=== PATIENT | male | born 1995 | race Caucasian/White ===

== ENCOUNTER 2024-04-15 16:43 | Outpatient (OUT) | payer BC, SELFPAY ==
--- NOTE | 2024-04-15 16:55 | XR_ITS ---
The [address] [address] Patient Name: GREG MARTINEZ MRN: [id number] date: 1995 Sex: M Assigned Patient Location: [facility] Current Patient Location: Accession/Order Number: [id number] Exam Date: 04/15/2024 17:00 Report Date: 04/16/2024 07:29 At the request of: DELIA DOLL Procedure: XR chest 2V PROCEDURE: XR chest 2V DATE: 04/15/2024 4:00 PM CDT COMPARISONS: None. CLINICAL INDICATION: 28 years Male Anterior chest wall pain R07.89 FINDINGS: The cardiomediastinal silhouette and pulmonary vasculature are within normal limits. The lungs are clear. There is no evidence of pleural effusion or pneumothorax. XR/XR chest 2V IMPRESSION: Chest radiograph is within normal limits. Electronically authenticated by: HAYDEN SORENSON Date: 04/16/2024 07:29
--- NOTE | 2024-04-15 16:56 | XR_ITS ---
The [address] [address] Patient Name: GREG MARTINEZ MRN: [id number] date: 1995 Sex: M Assigned Patient Location: RAD Current Patient Location: Accession/Order Number: [id number] Exam Date: 04/15/2024 17:00 Report Date: 04/16/2024 07:30 At the request of: DELIA DOLL Procedure: XR elbow LT min 3V PROCEDURE: XR elbow LT min 3V DATE: 04/15/2024 4:00 PM CDT COMPARISONS: None CLINICAL INDICATION: Left elbow pain M25.522 FINDINGS: There is no evidence of fractures or other osseous abnormalities. No evidence of left elbow joint effusion XR/XR elbow LT min 3V IMPRESSION: Left elbow radiographs show no evidence of abnormalities. Electronically authenticated by: HAYDEN SORENSON Date: 04/16/2024 07:30
== END 2024-04-15 16:44 | disposition home or self-care (01) ==
PROVIDERS: PCP Internal Medicine; Visit Provider Internal Medicine
DX: R07.89 Other chest pain (principal); M25.522 Pain in left elbow
CPT/HCPCS: 71046; 73080

== ENCOUNTER 2024-04-18 10:10 | Outpatient (OUT) | payer BC, SELFPAY ==
--- OUTSIDE RECORDS SUMMARY | 2024-04-18 10:13 | XMS_ITS ---
Patient Summarization (C-CDA 2.1 CCD) Created on: April 18, 2024 Cj Robrets : 1995 Sex: Male Author Organization Sample organization Care Team Providers Care Manager Web Name Role Phone SHARMILA, DR LIN Admitting Milka DOLL, DR LIN Attending Unavailable SHARMILA, DR LIN Primary Care Unavailable SHARMILA, DR LIN Consulting Unavailable Encounters Encounter Date Encounter Type Care Provider Facility Start: 04-15-2024 End: 04-15-2024 ambulatory [facility] Work Phone: Start: 04-15-2024 End: 04-15-2024 Encounter for general adult medical examination without abnormal findings [facility] Start: 04-15-2024 End: 04-15-2024 Patient encounter procedure [facility] Work Phone: Start: 04-21-2022 Encounter for genera l adult medical examination without abnormal findings DR KRAIG DOLL [facility] Start: 04-18-2022 End: 04-19-[address] KRAIG DOLL Facility:[facility] Start: 04-18-2022 End: 04-19-2022 Encounter for general adult medical examination without abnormal findings DR KRAIG DOLL Facility:[facility] Payers Date Payer Category Payer Unknown [id number] 1961 Unknown [id number] Plan of Treatment Date Care Activity Detail Author Comprehensive metabo lic 1999 panel - Serum or Plasma [facility] enter XR Chest 2 Views [facility] XR Elbow - left GE 3 Views [facility] Problems Problem Classification Problem Date Documented Da te Episodic/Chronic Nonspecific chest pain (1 source) Anterior chest wall pain; Translations: [Other chest pain] 04-15-2024 Episodic Other non-traumatic joint disorders (1 source) Pain in elbow; Translations: [Pain in left elbow] 04-15-2024 Episodic Results Test Name Value Interpretation Reference Range Facil ity T3, TOTAL (TRIIODOTHYRONINE) on 04-19-2022 T3, TOTAL 94 ng/dL Normal 71-180 [facility] Comment on above: Performed By: #### T 3TOTAL #### [facility] [address] [place] [address] Dr. Rosetta Miguel CBC AUTO DIFFon 04-18-2022 BASO # 0.1 103/ul Normal 0.0-0.1 [facility] Comment on above: Performed By: #### C BC #### [facility] [address] [place] [address] Dr. Rosetta Miguel Basophils/100 WBC (Bld) 0.8 % Normal 0.2-2.0 [facility] Comment on above: Performed By: #### C BC #### [facility] [address] [place] [address] Dr. Rosetta Miguel EO # 0.5 103/ul Normal 0.0-0.7 [facility] Comment on above: Performed By: #### C BC #### [facility] [address] [place] [address] Dr. Rosetta Miguel Eosinophils/100 WBC (Bld) 6.5 % Normal 0.9-7.0 [facility] Comment on above: Performed By: #### C BC #### [facility] [address] [place] [address] Dr. Rosetta Miguel Erythrocyte distribution width (RBC) [Ratio] 12.2 % Normal 11.0-15.0 [facility] Comment on above: Performed By: #### C BC #### [facility] [address] [place] [address] Dr. Rosetta Miguel Hematocrit (Bld) [Volume fraction] 45.7 % Normal 42.0-54.0 [facility] Comment on above: Performed By: #### C BC #### [facility] [address] [place] [address] Dr. Rosetta Miguel Hemoglobin (Bld) [Mass/Vol] 15.6 g/dL Normal 14.0-18.0 [facility] Comment on above: Performed By: #### C BC #### [facility] [address] [place] [address] Dr. Rosetta Miguel IG # 0.01 10e3/ul Normal 0.00-0.03 [facility] Comment on above: Performed By: #### C BC #### [facility] [address] [place] [address] Dr. Rosetta Miguel IG % 0.1 % Normal 0.0-0.5 [facility] Comment on above: Performed By: #### C BC #### [facility] [address] [place] [address] Dr. Rosetta Miguel LYMPH # 3.6 103/ul Normal 1.2-3.8 [facility] Comment on above: Performed By: #### C BC #### [facility] [address] [place] [address] Dr. Rosetta Miguel Lymphocytes/100 WBC (Bld) 45.7 % Normal 20.5-60.0 [facility] Comment on above: Performed By: #### C BC #### [facility] [address] [place] [address] Dr. Rosetta Miguel MANUAL DIFF REQ NO Normal [facility] Comment on above: Performed By: #### C BC #### [facility] [address] [place] [address] Dr. Rosetta Miguel MCH (RBC) [Entitic mass] 33.1 pg Normal 25.9-34.0 [facility] Comment on above: Performed By: #### C BC #### [facility] [address] [place] [address] Dr. Rosetta Miguel MCHC (RBC) [Mass/Vol] 34.1 g/dL Normal 29.9-35.2 [facility] Comment on above: Performed By: #### C BC #### [facility] [address] [place] [address] Dr. Rosetta Miguel MCV (RBC) [Entitic vol] 96.8 fL Critically high 80.0-94.0 [facility] Comment on above: Performed By: #### C BC #### [facility] [address] [place] [address] Dr. Rosetta Miguel MONO # 0.4 103/ul Normal 0.3-0.8 [facility] Comment on above: Performed By: #### C BC #### [facility] [address] [place] [address] Dr. Rosetta Miguel Monocytes/100 WBC (Bld) 5.2 % Normal 1.7-12.0 [facility] Comment on above: Performed By: #### C BC #### [facility] [address] [place] [address] Dr. Rosetta Miguel NEUT # 3.3 103/ul Normal 1.4-6.5 [facility] Comment on above: Performed By: #### C BC #### [facility] [address] [place] [address] Dr. Rosetta Miguel Neutrophils/100 WBC (Bld) 41.7 % Critically low 43.0-75.0 [facility] Comment on above: Performed By: #### C BC #### [facility] [address] [place] [address] Dr. Rosetta Miguel Platelet mean volume (Bld) [Entitic vol] 9.0 fL Critically low 9.5-13.5 [facility] Comment on above: Performed By: #### C BC #### [facility] [address] [place] [address] Dr. Rosetta Miguel PLT 277 103/ul Normal 150-450 [facility] Comment on above: Performed By: #### C BC #### [facility] [address] [place] [address] Dr. Rosetta Miguel RBC 4.72 106/ul Normal 4.70-6.10 [facility] Comment on above: Performed By: #### C BC #### [facility] [address] [place] [address] Dr. Rosetta Miguel WBC 7.8 103/ul Normal 4.0-11.0 [facility] Comment on above: Performed By: #### C BC #### [facility] [address] [place] [address] Dr. Rosetta Miguel FREE T4on 04-18-2022 Free T4 [Mass/Vol] 0.95 ng/dL Normal 0.76-1.46 [facility] Comment on above: Performed By: #### F T4 #### [facility] [address] [address] [address] Rosetta Miguel LIPID PROFILEon 04-18-2022 CHOL-HDL RATIO NORM SEE BELOW Normal [facility] Comment on above: Result Comment: 3.3 - 4.4 LOW RISK 4.4 - 7.1 AVERAGE RISK 7.1 - 11.0 MODERATE RISK >11.0 HIGH RISK Performed By: #### T SH, LIPID, CMP #### [facility] [address] [address] [address] Rosetta Miguel Cholesterol [Mass/Vol] 199 mg/dL Normal <=200 [facility] Comment on above: Performed By: #### T SH, LIPID, CMP #### [facility] [address] [address] [address] Rosetta Miguel Cholesterol in HDL [Mass/Vol] 43 mg/dL Normal 40-60 [facility] Comment on above: Performed By: #### T SH, LIPID, CMP #### [facility] [address] [address] [address] Rosetta Miguel Cholesterol in LDL [Mass/Vol] 127.0 mg/dL Normal [facility] Comment on above: Performed By: #### T SH, LIPID, CMP #### [facility] [address] [address] [address] Rosetta Miguel Cholesterol.total/C holesterol in HDL [Mass ratio] 4.6 {ratio} Normal [facility] Comment on above: Performed By: #### T SH, LIPID, CMP #### [facility] [address] [address] [address] Rosetta Miguel HDL NORMAL > or = 60 mg/dl - LO W CARDIOVASCULAR RISK <40 mg/dl - HIGH CARDIOVASCULAR RISK Normal [facility] Comment on above: Performed By: #### T SH, LIPID, CMP #### [facility] [address] [address] [address] Rosetta Miguel LDL CALC NORMAL SEE BELOW Normal [facility] Comment on above: Result Comment: <100 mg/dl OPTIMAL 100 - 129 mg/dl NEAR OR ABOVE OPTIMAL 130 - 159 mg/dl BORDERLINE HIGH 160 - 189 mg/dl HIGH >190 mg/dl VERY HIGH Performed By: #### T SH, LIPID, CMP #### [facility] [address] [address] [address] Rosetta Miguel Triglyceride [Mass/Vol] 145 mg/dL Normal <=150 [facility] Comment on above: Performed By: #### T SH, LIPID, CMP #### [facility] [address] [address] [address] Rosetta Miguel VLDL CALC 29.0 mg/dL Normal [facility] Comment on above: Performed By: #### T VALENTIN, LIPID, CMP #### [facility] [address] [address] [address] Rosetta Miguel PROF 14(COMP METB)on 022 Albumin [Mass/Vol] 4.1 g/dL Normal 3.4-5.0 [facility] Comment on above: Performed By: #### T VALENTIN, LIPID, CMP #### [facility] [address] [address] [address] Rosetta Miguel Albumin/Globulin [Mass ratio] 1.3 {ratio} Normal [facility] Comment on above: Performed By: #### T VALENTIN, LIPID, CMP #### [facility] [address] [address] [address] Rosetta Miguel ALP [Catalytic activity/Vol] 50 U/L Normal 46-116 [facility] Comment on above: Performed By: #### T VALENTIN, LIPID, CMP #### [facility] [address] [address] [address] Rosetta Miguel ALT [Catalytic activity/Vol] 20 U/L Normal 16-63 [facility] Comment on above: Performed By: #### T SH, LIPID, CMP #### [facility] [address] [address] [address] Rosetta Miguel Anion gap [Moles/Vol] 9.8 mmol/L Normal [facility] Comment on above: Performed By: #### T SH, LIPID, CMP #### [facility] [address] [place] [address] Dr. Rosetta Miguel AST [Catalytic activity/Vol] 19 U/L Normal 15-37 [facility] Comment on above: Performed By: #### T SH, LIPID, CMP #### [facility] [address] [place] [address] Dr. Rosetta Miguel Bilirubin [Mass/Vol] 0.3 mg/dL Normal 0.2-1.0 [facility] Comment on above: Performed By: #### T SH, LIPID, CMP #### [facility] [address] [place] [address] Dr. Rosetta Miguel Calcium [Mass/Vol] 8.7 mg/dL Normal 8.5-10.1 [facility] Comment on above: Performed By: #### T SH, LIPID, CMP #### [facility] [address] [place] [address] Dr. Rosetta Miguel Chloride [Moles/Vol] 107 mmol/L Normal 98-107 [facility] Comment on above: Performed By: #### T SH, LIPID, CMP #### [facility] [address] [place] [address] Dr. Rosetta Miguel CO2 [Moles/Vol] 31.1 mmol/L Normal 21.0-32.0 [facility] Comment on above: Performed By: #### T SH, LIPID, CMP #### [facility] [address] [place] [address] Dr. Rosetta Miguel Creatinine [Mass/Vol] 1.11 mg/dL Normal 0.70-1.30 [facility] Comment on above: Performed By: #### T SH, LIPID, CMP #### [facility] [address] [place] [address] Dr. Rosetta Miguel EGFR-AF CITIZEN OF [place] >60 Normal >=60 [facility] Comment on above: Performed By: #### T SH, LIPID, CMP #### [facility] [address] [place] [address] Dr. Rosetta Miguel EGFR-NON AF CITIZEN OF [place] >60 Normal >=60 [facility] Comment on above: Performed By: #### T SH, LIPID, CMP #### [facility] [address] [address] [address] Rosetta Miguel Globulin (S) [Mass/Vol] 3.1 g/dL Normal [facility] Comment on above: Performed By: #### T SH, LIPID, CMP #### [facility] [address] [place] [address] Dr. Rosetta Miguel Glucose [Mass/Vol] 90 mg/dL Normal 74-106 [facility] Comment on above: Performed By: #### T SH, LIPID, CMP #### [facility] [address] [place] [address] Dr. Rosetta Miguel Potassium [Moles/Vol] 4.9 mmol/L Normal 3.5-5.1 [facility] Comment on above: Performed By: #### T VALENTIN, LIPID, CMP #### [facility] [address] [place] [address] Dr. Rosetta Miguel Protein [Mass/Vol] 7.2 g/dL Normal 6.4-8.2 [facility] Comment on above: Performed By: #### T VALENTIN, LIPID, CMP #### [facility] [address] [place] [address] Dr. Rosetta Miguel Sodium [Moles/Vol] 143 mmol/L Normal 136-145 [facility] Comment on above: Performed By: #### T VALENTIN, LIPID, CMP #### [facility] [address] [place] [address] Dr. Rosetta Miguel Urea nitrogen [Mass/Vol] 18.0 mg/dL Normal 7.0-18.0 [facility] Comment on above: Performed By: #### T SH, LIPID, CMP #### [facility] [address] [place] [address] Dr. Rosetta Miguel Urea nitrogen/Creatinine [Mass ratio] 16.2 mg/mg Normal [facility] Comment on above: Performed By: #### T SH, LIPID, CMP #### [facility] [address] [place] [address] Dr. Rosetta Miguel TSHon 04-18-2022 TSH 1.988 uIU/mL Normal 0.358-3.740 [facility] Comment on above: Performed By: #### T SH, LIPID, CMP #### [facility] [address] [place], [place] [address] Dr. Rosetta Miguel TSH RANGE SEE BELOW Normal [facility] Comment on above: Result Comment: <0.3 4 UIU/ml HYPERTHYROID 0.34-5.60 UIU/ml EUTHYROID >5.60 UIU/ml HYPOTHYROID Performed By: #### T SH, LIPID, CMP #### [facility] [address] [place], [place] [address] Dr. Rosetta Miguel Social History Date Type Detail Facility Start: 04-15-2024 Tobacco smoking stat us KYIS Never smoked tobacco (finding) [facility] Start: 1995 Sex Assigned At Male F [facility] Vital Signs Date Time Vital Sign Value Performing Clinician Faci lity 04-15-2024 14:57-0400 Body height 187.96 cm [facility] 04-15-2024 14:57-0400 Body mass index (BMI) [Ratio] 19.8 kg/m2 [facility] 04-15-2024 14:57-0400 Body weight 69.96 kg [facility] 04-15-2024 14:57-0400 Diastolic blood pressure 83 mm[Hg] [facility] 04-15-2024 14:57-0400 Heart rate 82 /min [facility] 04-15-2024 14:57-0400 Respiratory rate 12 /min [facility] 04-15-2024 14:57-0400 Systolic blood pressure 138 mm[Hg] [facility] Evaluation note Note Date & Type Note Facility Evaluation note Diagnosis Onset Date Wellness examination noneact nathan [facility] Work Phone: Summary Purpose Family History No Family History Records Found Advance Directives Advance Directive Response Recorded Date/ Time Advance Directives No April 15 2:49pm Chief Complaint and Reason for Visit Chief Complaint wellness Reason for Visit Wellness examination Additional Source Comments (unrecognized sect ion and content) No Status Records Found INFORMATION SOURCE (unrecogn ized section and content) DATE CREATED AUTHOR 04/21/2022 [facility] Teams (unrecognized sec tion and content) Team Status: Active Member Role Status Dates Kraig Doll DO Primary Care Provider Active Team Status: Inactive Member Role Status Dates Kraig Doll DO Primary Care Provide r, Attending Provider Active Start: April 15, 2024 End: April 15, 2024 Goals (unrecognized section and content) Goals may be documented in a n alternate section FOR RECORDS PERTAINING TO PATIENTS WHO ARE OR HAVE BEEN ENROLLED IN A CHEMICAL DEPENDENCY/SUBSTANCEABUSE PROGRAM, SOME INFORMATION MAY BE OMITTED. This clinical summary was aggregated from multiple sources. Caution should be exercised in using it in the provision of clinical care. This summary normalizes information from multiple sources, and as a consequence, information in this document may materially change the coding, format and clinical context of patient data. In addition, data may be omitted in some cases. CLINICAL DECISIONS SHOULD BE BASED ON THE PRIMARY CLINICAL RECORDS. [facility]. provides no warranty or guarantee of the accuracy or completeness of information in this document.
[2024-04-18 10:22] LABS: Basophils Absolute Auto 0.1 10^3/uL (0.0-0.1); Basophils Percent Auto 1.2 % (0.2-2.0); Eosinophils Absolute Auto 0.3 10^3/uL (0.0-0.7); Eosinophils Percent Auto 4.8 % (0.9-7.0); Hematocrit 43.3 % (42.0-54.0); Hemoglobin 14.5 g/dL (14.0-18.0); Immature Granulocytes Abs Auto 0.01 10^3/uL (0.00-0.03); Immature Granulocytes Pct Auto 0.2 % (0.0-0.5); Lymphocytes Absolute Auto 2.6 10^3/uL (1.2-3.8); Lymphocytes Percent Auto 43.3 % (20.5-60.0); Mean Corpuscular HGB Conc 33.5 g/dL (29.9-35.2); Mean Corpuscular Hemoglobin 32.6 pg (25.9-34.0); Mean Corpuscular Volume 97.3 fL (80.0-94.0); Mean Platelet Volume 8.6 fL (9.5-13.5); Monocytes Absolute Auto 0.5 10^3/uL (0.3-0.8); Monocytes Percent Auto 8.7 % (1.7-12.0); Neutrophils Absolute Auto 2.5 10^3/uL (1.4-6.5); Neutrophils Percent Auto 41.8 % (43.0-75.0); Platelet Count 261 10^3/uL (150-450); Red Blood Count 4.45 10^6/uL (4.70-6.10); Red Cell Distribution Width 12.2 % (11.0-15.0); White Blood Count 6.1 10^3/uL (4.0-11.0)
[2024-04-18 12:09] LABS: Alanine Aminotransferase 26 U/L (16-63); Albumin Globulin Ratio 1.2; Albumin Level 3.7 g/dL (3.4-5.0); Alkaline Phosphatase 44 U/L (46-116); Anion Gap 12.2; Aspartate Amino Transferase 17 U/L (15-37); BUN Creatinine Ratio 9.6; Bilirubin Total 0.5 mg/dL (0.2-1.0); Calcium 8.2 mg/dL (8.5-10.1); Carbon Dioxide 31.2 mmol/L (21.0-32.0); Chloride 105 mmol/L (98-107); Chol HDL Ratio 2.7; Cholesterol 214 mg/dL (<=200); Estimated GFR (African America >60 (>=60); Estimated GFR (Non-African Ame >60 (>=60); Globulin 3.2 g/dL; Glucose 92 mg/dL (74-106); HDL Cholesterol 80 mg/dL (40-60); Potassium 4.4 mmol/L (3.5-5.1); Sodium 144 mmol/L (136-145); Thyroid Stimulating Hormone 1.959 uIU/mL (0.358-3.740); Total Protein 6.9 g/dL (6.4-8.2); Triglycerides 48 mg/dL (<=150); VLDL CHOLESTEROL 9.6 mg/dL
== END 2024-04-18 10:11 | disposition home or self-care (01) ==
LOC: LAB 10:10
PROVIDERS: PCP Internal Medicine; Visit Provider Internal Medicine
DX: Z00.00 Encounter for general adult medical examination without abnormal findings (principal)
CPT/HCPCS: 36415; 80053; 80061; 84443; 85025

== ENCOUNTER 2024-07-16 16:13 | Outpatient (OUT) | payer BC, SELFPAY ==
--- OUTSIDE RECORDS SUMMARY | 2024-07-16 16:22 | XMS_ITS | CCD ---
Author Organization [facility] Inform ion Partnership [facility] Care Team Providers Care Director [employer] Name Role Phone DR KRAIG DOLL Admitting Unavailable SHARMILA, DR LIN Attending Unavailable SHARMILA, DR LIN Primary Care Unavailable SHARMILA, DR LIN Consulting Unavailable Problems Problem Classification Problem Date Documented Da te Episodic/Chronic Abdominal pain (2 sources) Abdominal pain; Translations: [Unspecified abdominal pain] 04-15-2024 Episodic Gastrointestinal hemorrhage (2 sources) Hematochezia; Translations: [Melena] 04-15-2024 Episodic Nonspecific chest pain (3 sources) Anterior chest wall pain; Translations: [Other chest pain] 04-15-2024 Episodic Other nervous system disorders (1 source) Paresthesia of left upper limb; Translations: [Paresthesia of skin] 04-15-2024 Episodic Other nervous system disorders (1 source) Paresthesia of skin; Translations: [Disturbance of skin sensation] 07-15-2024 Episodic Other non-traumatic joint disorders (2 sources) Pain in elbow; Translations: [Pain in left elbow] 04-15-2024 Episodic Other non-traumatic joint disorders (1 source) Pain in left elbow; Translations: [Pain in joint, upper arm] 07-15-2024 Episodic Results Test Name Value Interpretation Reference Range Facility Basophils Auto (Bld) [#/Vol] on 04-18-2024 Basophils (Bld) [#/Vol] 0.1 10 3/uL 0.0-0.1 [facility] Basophils/100 WBC Auto (Bld) on 04-18-2024 Basophils/100 WBC (Bld) 1.2 % 0.2-2.0 [facility] Cholesterol in LDL Calc [Mas s/Vol]on 04-18-2024 Cholesterol in LDL [Mass/Vol] 125.0 mg/dL [facility] Comment on above: <100 mg/dl [id number] 0-129 mg/dl NEAR OR ABOVE [id number] mg/dl BORDERLINE [id number] mg/dl HIGH>190 mg/dl VERY HIGH Cholesterol in VLDL Calc [Ma ss/Vol]on 04-18-2024 Cholesterol in VLDL [Mass/Vol] 9.6 mg/dL [facility] Eosinophils/100 WBC Auto (Bl d)on 04-18-2024 Eosinophils/100 WBC (Bld) 4.8 % 0.9-7.0 [facility] Erythrocyte distribution wid th Auto (RBC) [Ratio]on 04-18-2024 Erythrocyte distribution width (RBC) [Ratio] 12.2 % 11.0-15.0 [facility] Estimated glomerular filtrat ion rate (GFR) non- Americanon 04-18-2024 GFR/1.73 sq M.predicted among non-blacks MDRD (S/P/Bld) [Vol rate/Area] mL/min/{1.73_m2} >=60 [facility] Globulin Calc (S) [Mass/Vol] on 04-18-2024 Globulin (S) [Mass/Vol] 3.2 g/dL [facility] Hematocrit Auto (Bld) [Volum e fraction]on 04-18-2024 Hematocrit (Bld) [Volume fraction] 43.3 % 42.0-54.0 [facility] Hemoglobin [Mass/volume] in Bloodon 04-18-2024 Hemoglobin (Bld) [Mass/Vol] 14.5 g/dL 14.0-18.0 [facility] Laboratory - Chemistry and C hemistry - challengeon 04-18-2024 Albumin [Mass/Vol] 3.7 g/dL 3.4-5.0 [facility] ALP [Catalytic activity/Vol] 44 U/L Low 46-116 [facility] ALT [Catalytic activity/Vol] 26 U/L 16-63 [facility] AST [Catalytic activity/Vol] 17 U/L 15-37 [facility] Bilirubin [Mass/Vol] 0.5 mg/dL 0.2-1.0 [facility] Calcium [Mass/Vol] 8.2 mg/dL Low 8.5-10.1 [facility] Chloride [Moles/Vol] 105 mmol/L 98-107 [facility] Cholesterol [Mass/Vol] 214 mg/dL High <=200 [facility] Cholesterol in HDL [Mass/Vol] 80 mg/dL High 40-60 [facility] Comment on above: > or =60 mg/dl - LOW CARDIOVASCULAR RISK<40 mg/dl - HIGH CARDIOVASCULAR RISK CO2 [Moles/Vol] 31.2 mmol/L 21.0-32.0 [facility] Creatinine [Mass/Vol] 1.14 mg/dL 0.70-1.30 [facility] GFR/1.73 sq M.predicted MDRD (S/P/Bld) [Vol rate/Area] mL/min/{1.73_m2} >=60 [facility] Glucose [Mass/Vol] 92 mg/dL 74-106 [facility] Potassium [Moles/Vol] 4.4 mmol/L 3.5-5.1 [facility] Protein [Mass/Vol] 6.9 g/dL 6.4-8.2 [facility] Sodium [Moles/Vol] 144 mmol/L 136-145 [facility] Triglyceride [Mass/Vol] 48 mg/dL <=150 [facility] TSH Qn 1.959 m[IU]/L 0.358-3.740 [facility] Urea nitrogen [Mass/Vol] 11.0 mg/dL 7.0-18.0 [facility] Urea nitrogen/Creatinine [Mass ratio] 9.6 mg/mg [facility] Laboratory - Hematology and Cell countson 04-18-2024 Immature granulocytes/100 WBC (Bld) 0.2 % 0.0-0.5 [facility] Leukocytes [#/volume] correc morgan for nucleated erythrocytes in Blood by Automated counon 04-18-2024 WBC corrected for nucl RBC Auto (Bld) [#/Vol] 6.1 10 3/uL 4.0-11.0 [facility] Lymphocytes Auto (Bld) [#/Vo l]on 04-18-2024 Lymphocytes (Bld) [#/Vol] 2.6 10 3/uL 1.2-3.8 [facility] Lymphocytes/100 WBC Auto (Bl d)on 04-18-2024 Lymphocytes/100 WBC (Bld) 43.3 % 20.5-60.0 [facility] MCH Auto (RBC) [Entitic mass ]on 04-18-2024 MCH (RBC) [Entitic mass] 32.6 pg 25.9-34.0 [facility] MCHC Auto (RBC) [Mass/Vol]on 04-18-2024 MCHC (RBC) [Mass/Vol] 33.5 g/dL 29.9-35.2 [facility] MCV Auto (RBC) [Entitic vol] on 04-18-2024 MCV (RBC) [Entitic vol] 97.3 fL High 80.0-94.0 [facility] Monocytes Auto (Bld) [#/Vol] on 04-18-2024 Monocytes (Bld) [#/Vol] 0.5 10 3/uL 0.3-0.8 [facility] Monocytes/100 WBC Auto (Bld) on 04-18-2024 Monocytes/100 WBC (Bld) 8.7 % 1.7-12.0 [facility] Neutrophils Auto (Bld) [#/Vo l]on 04-18-2024 Neutrophils (Bld) [#/Vol] 2.5 10 3/uL 1.4-6.5 [facility] Neutrophils/100 WBC Auto (Bl d)on 04-18-2024 Neutrophils/100 WBC (Bld) 41.8 % Low 43.0-75.0 [facility] No Panel Informationon 04-18 Eosinophils # (Auto) 0.3 10 3/uL 0.0-0.7 [facility] Immature Granulocyte # (Auto) 0.01 10 3/uL 0.00-0.03 [facility] Platelet mean volume Auto (B ld) [Entitic vol]on 04-18-2024 Platelet mean volume (Bld) [Entitic vol] 8.6 fL Low 9.5-13.5 [facility] Platelets Auto (Bld) [#/Vol] on 04-18-2024 Platelets (Bld) [#/Vol] 261 10 3/uL 150-450 [facility] RBC Auto (Bld) [#/Vol]on RBC (Bld) [#/Vol] 4.45 10 6/uL Low 4.70-6.10 [facility] Serum or plasma albumin/glob ulin mass ratioon 04-18-2024 Albumin/Globulin [Mass ratio] 1.2 {ratio} [facility] Serum or plasma anion gap de terminationon 04-18-2024 Anion gap [Moles/Vol] 12.2 mmol/L [facility] Serum or plasma total choles terol/high density lipoprotein (HDL) cholesterol mass chip 04-18-2024 Cholesterol.total/Cho lesterol in HDL [Mass ratio] 2.7 {ratio} [facility] Comment on above: 3.3 - 4.4 LOW RISK4. 4 - 7.1 AVERAGE RISK7.1 - 11.0 MODERATE RISK>11.0 HIGH RISK T3, TOTAL (TRIIODOTHYRONINE) on 04-19-2022 T3, TOTAL 94 ng/dL Normal 71-180 [facility] Comment on above: Performed By: #### T 3TOTAL #### [facility] [address] [place] [address] Dr. Rosetta Miguel CBC AUTO DIFFon 04-18-2022 BASO # 0.1 103/ul Normal 0.0-0.1 [facility] Comment on above: Performed By: #### C BC #### [facility] [address] [place] [address] Dr. Rosetta Miguel Basophils/100 WBC (Bld) 0.8 % Normal 0.2-2.0 [facility] Comment on above: Performed By: #### C BC #### [facility] [address] [place] [address] Dr. Rosetta Miguel EO # 0.5 103/ul Normal 0.0-0.7 [facility] Comment on above: Performed By: #### C BC #### [facility] [address] [place] [address] Dr. Rosetta Miguel Eosinophils/100 WBC (Bld) 6.5 % Normal 0.9-7.0 [facility] Comment on above: Performed By: #### C BC #### [facility] [address] [place] [address] Dr. Rosetta Miguel Erythrocyte distribution width (RBC) [Ratio] 12.2 % Normal 11.0-15.0 [facility] Comment on above: Performed By: #### C BC #### [facility] [address] [place] [address] Dr. Rosetta Miguel Hematocrit (Bld) [Volume fraction] 45.7 % Normal 42.0-54.0 [facility] Comment on above: Performed By: #### C BC #### [facility] [address] [place] [address] Dr. Rosetta Miguel Hemoglobin (Bld) [Mass/Vol] 15.6 g/dL Normal 14.0-18.0 [facility] Comment on above: Performed By: #### C BC #### [facility] [address] [place] [address] Dr. Rosetta Miguel IG # 0.01 10e3/ul Normal 0.00-0.03 [facility] Comment on above: Performed By: #### C BC #### [facility] [address] [place] [address] Dr. Rosetta Miguel IG % 0.1 % Normal 0.0-0.5 [facility] Comment on above: Performed By: #### C BC #### [facility] [address] [place] [address] Dr. Rosetta Miguel LYMPH # 3.6 103/ul Normal 1.2-3.8 [facility] Comment on above: Performed By: #### C BC #### [facility] [address] [place] [address] Dr. Rosetta Miguel Lymphocytes/100 WBC (Bld) 45.7 % Normal 20.5-60.0 [facility] Comment on above: Performed By: #### C BC #### [facility] [address] [place] [address] Dr. Rosetta Miguel MANUAL DIFF REQ NO Normal [facility] Comment on above: Performed By: #### C BC #### [facility] [address] [place] [address] Dr. Rosetta Miguel MCH (RBC) [Entitic mass] 33.1 pg Normal 25.9-34.0 [facility] Comment on above: Performed By: #### C BC #### [facility] [address] [place] [address] Dr. Rosetta Miguel MCHC (RBC) [Mass/Vol] 34.1 g/dL Normal 29.9-35.2 [facility] Comment on above: Performed By: #### C BC #### [facility] [address] [place] [address] Dr. Rosetta Miguel MCV (RBC) [Entitic vol] 96.8 fL Critically high 80.0-94.0 [facility] Comment on above: Performed By: #### C BC #### [facility] [address] [place] [address] Dr. Rosetta Miguel MONO # 0.4 103/ul Normal 0.3-0.8 [facility] Comment on above: Performed By: #### C BC #### [facility] [address] [place] [address] Dr. Rosetta Miguel Monocytes/100 WBC (Bld) 5.2 % Normal 1.7-12.0 [facility] Comment on above: Performed By: #### C BC #### [facility] [address] [place] [address] Dr. Rosetta Miguel NEUT # 3.3 103/ul Normal 1.4-6.5 [facility] Comment on above: Performed By: #### C BC #### [facility] [address] [place] [address] Dr. Rosetta Miguel Neutrophils/100 WBC (Bld) 41.7 % Critically low 43.0-75.0 [facility] Comment on above: Performed By: #### C BC #### [facility] [address] [place] [address] Dr. Rosetta Miguel Platelet mean volume (Bld) [Entitic vol] 9.0 fL Critically low 9.5-13.5 [facility] Comment on above: Performed By: #### C BC #### [facility] [address] [place] [address] Dr. Rosetta Miguel PLT 277 103/ul Normal 150-450 [facility] Comment on above: Performed By: #### C BC #### [facility] [address] [place] [address] Dr. Rosetta Miguel RBC 4.72 106/ul Normal 4.70-6.10 [facility] Comment on above: Performed By: #### C BC #### [facility] [address] [place] [address] Dr. Rosetta Miguel WBC 7.8 103/ul Normal 4.0-11.0 [facility] Comment on above: Performed By: #### C BC #### [facility] [address] [place] [address] Dr. Rosetta Miguel FREE T4on 04-18-2022 Free T4 [Mass/Vol] 0.95 ng/dL Normal 0.76-1.46 [facility] Comment on above: Performed By: #### F T4 #### [facility] [address] [place] [address] Dr. Rosetta Miguel LIPID PROFILEon 04-18-2022 CHOL-HDL RATIO NORM SEE BELOW Normal [facility] Comment on above: Result Comment: 3.3 - 4.4 LOW RISK 4.4 - 7.1 AVERAGE RISK 7.1 - 11.0 MODERATE RISK >11.0 HIGH RISK Performed By: #### T SH, LIPID, CMP #### [facility] [address] [place] [address] Dr. Rosetta Miguel Cholesterol [Mass/Vol] 199 mg/dL Normal <=200 [facility] Comment on above: Performed By: #### T SH, LIPID, CMP #### [facility] [address] [place] [address] Dr. Rosetta Miguel Cholesterol in HDL [Mass/Vol] 43 mg/dL Normal 40-60 [facility] Comment on above: Performed By: #### T SH, LIPID, CMP #### [facility] [address] [place] [address] Dr. Rosetta Miguel Cholesterol in LDL [Mass/Vol] 127.0 mg/dL Normal [facility] Comment on above: Performed By: #### T SH, LIPID, CMP #### [facility] [address] [address] [address] Rosetta Miguel Cholesterol.total/Cho lesterol in HDL [Mass ratio] 4.6 {ratio} Normal [facility] Comment on above: Performed By: #### T SH, LIPID, CMP #### [facility] [address] [address] [address] Rosetta Miguel HDL NORMAL > or = 60 mg/dl - LOW CARDIOVASCULAR RISK <40 mg/dl - HIGH CARDIOVASCULAR RISK Normal [facility] Comment on above: Performed By: #### T VALENTIN, LIPID, CMP #### [facility] [address] [place] [address] Dr. Rosetta Miguel LDL CALC NORMAL SEE BELOW Normal [facility] Comment on above: Result Comment: <100 mg/dl OPTIMAL 100 - 129 mg/dl NEAR OR ABOVE OPTIMAL 130 - 159 mg/dl BORDERLINE HIGH 160 - 189 mg/dl HIGH >190 mg/dl VERY HIGH Performed By: #### T VALENTIN, LIPID, CMP #### [facility] [address] [address] [address] Rosetta Miguel Triglyceride [Mass/Vol] 145 mg/dL Normal <=150 [facility] Comment on above: Performed By: #### T SH, LIPID, CMP #### [facility] [address] [place] [address] Dr. Rosetta Miguel VLDL CALC 29.0 mg/dL Normal [facility] Comment on above: Performed By: #### T SH, LIPID, CMP #### [facility] [address] [place] [address] Dr. Rosetta Miguel PROF 14(COMP METB)on 022 Albumin [Mass/Vol] 4.1 g/dL Normal 3.4-5.0 [facility] Comment on above: Performed By: #### T SH, LIPID, CMP #### [facility] [address] [place] [address] Dr. Rosetta Miguel Albumin/Globulin [Mass ratio] 1.3 {ratio} Normal [facility] Comment on above: Performed By: #### T SH, LIPID, CMP #### [facility] [address] [address] [address] Rosetta Miguel ALP [Catalytic activity/Vol] 50 U/L Normal 46-116 [facility] Comment on above: Performed By: #### T SH, LIPID, CMP #### [facility] [address] [address] [address] Rosetta Miguel ALT [Catalytic activity/Vol] 20 U/L Normal 16-63 [facility] Comment on above: Performed By: #### T SH, LIPID, CMP #### [facility] [address] [address] [address] Rosetta Miguel Anion gap [Moles/Vol] 9.8 mmol/L Normal [facility] Comment on above: Performed By: #### T SH, LIPID, CMP #### [facility] [address] [place] [address] Dr. Rosetta Miguel AST [Catalytic activity/Vol] 19 U/L Normal 15-37 [facility] Comment on above: Performed By: #### T SH, LIPID, CMP #### [facility] [address] [address] [address] Rosetta Miguel Bilirubin [Mass/Vol] 0.3 mg/dL Normal 0.2-1.0 [facility] Comment on above: Performed By: #### T SH, LIPID, CMP #### [facility] [address] [place] [address] Dr. Rosetta Miguel Calcium [Mass/Vol] 8.7 mg/dL Normal 8.5-10.1 [facility] Comment on above: Performed By: #### T SH, LIPID, CMP #### [facility] [address] [address] [address] Rosetta iMguel Chloride [Moles/Vol] 107 mmol/L Normal 98-107 [facility] Comment on above: Performed By: #### T SH, LIPID, CMP #### [facility] [address] [address] [address] Rosetta Miguel CO2 [Moles/Vol] 31.1 mmol/L Normal 21.0-32.0 [facility] Comment on above: Performed By: #### T SH, LIPID, CMP #### [facility] [address] [address] [address] Rosetta Miguel Creatinine [Mass/Vol] 1.11 mg/dL Normal 0.70-1.30 [facility] Comment on above: Performed By: #### T SH, LIPID, CMP #### [facility] [address] [address] [address] Rosetta Miguel EGFR-AF BENINESE >60 Normal >=60 [facility] Comment on above: Performed By: #### T SH, LIPID, CMP #### [facility] [address] [address] [address] Rosetta Miguel EGFR-NON AF BENINESE >60 Normal >=60 [facility] Comment on above: Performed By: #### T SH, LIPID, CMP #### [facility] [address] [address] [address] Rosetta Miguel Globulin (S) [Mass/Vol] 3.1 g/dL Normal [facility] Comment on above: Performed By: #### T SH, LIPID, CMP #### [facility] [address] [address] [address] Rosetta Miguel Glucose [Mass/Vol] 90 mg/dL Normal 74-106 [facility] Comment on above: Performed By: #### T SH, LIPID, CMP #### [facility] [address] [address] [address] Rosetta Miguel Potassium [Moles/Vol] 4.9 mmol/L Normal 3.5-5.1 [facility] Comment on above: Performed By: #### T SH, LIPID, CMP #### [facility] [address] [address] [address] Rosetta Miguel Protein [Mass/Vol] 7.2 g/dL Normal 6.4-8.2 [facility] Comment on above: Performed By: #### T SH, LIPID, CMP #### [facility] [address] [address] [address] Rosetta Miguel Sodium [Moles/Vol] 143 mmol/L Normal 136-145 [facility] Comment on above: Performed By: #### T SH, LIPID, CMP #### [facility] [address] [address] [address] Rosetta Miguel Urea nitrogen [Mass/Vol] 18.0 mg/dL Normal 7.0-18.0 [facility] Comment on above: Performed By: #### T SH, LIPID, CMP #### [facility] [address] [place] [address] Dr. Rosetta Miguel Urea nitrogen/Creatinine [Mass ratio] 16.2 mg/mg Normal [facility] Comment on above: Performed By: #### T SH, LIPID, CMP #### [facility] [address] [place] [address] Dr. Rosetta Miguel TSHon 04-18-2022 TSH 1.988 uIU/mL Normal 0.358-3.740 [facility] Comment on above: Performed By: #### T SH, LIPID, CMP #### [facility] [address] [place] [address] Dr. Rosetta Miguel TSH RANGE SEE BELOW Normal [facility] Comment on above: Result Comment: <0.3 4 UIU/ml HYPERTHYROID 0.34-5.60 UIU/ml EUTHYROID >5.60 UIU/ml HYPOTHYROID Performed By: #### T SH, LIPID, CMP #### [facility] [address] [place] [address] Dr. Rosetta Miguel Vital Signs Date Time Vital Sign Value Performing Clinician Faci lity 07-15-2024 16:03040 Body height 187.96 cm [facility] 07-15-2024 16:030400 Body mass index (BMI) [Ratio] 20.2 kg/m2 [facility] 07-15-2024 16:040 Body weight 71.72 kg [facility] 07-15-2024 16:03-0400 Diastolic blood pressure 83 mm[Hg] [facility] 07-15-2024 16:03-0400 Heart rate 85 /min [facility] 07-15-2024 16:030400 Respiratory rate 12 /min [facility] 07-15-2024 16:03-0400 Systolic blood pressure 159 mm[Hg] [facility] 04-15-2024 14:57-0400 Body height 187.96 cm [facility] 04-15-2024 14:57-0400 Body mass index (BMI) [Ratio] 19.8 kg/m2 [facility] 04-15-2024 14:57-0400 Body weight 69.96 kg [facility] 04-15-2024 14:57-0400 Diastolic blood pressure 83 mm[Hg] [facility] 04-15-2024 14:57-0400 Heart rate 82 /min [facility] 04-15-2024 14:57-0400 Respiratory rate 12 /min [facility] 04-15-2024 14:57-0400 Systolic blood pressure 138 mm[Hg] [facility] Encounters Encounter Date Encounter Type Care Provider Facility Start: 07-15-2024 End: 07-15-2024 ambulatory [facility] Work Phone: Start: 07-15-2024 End: 07-15-2024 Patient encounter procedure [facility] Work Phone: Start: 04-18-2024 Non-patient / Non-visit [facility] Work Phone: Start: 04-15-2024 End: 04-15-2024 ambulatory [facility] Work Phone: Start: 04-15-2024 End: 04-15-2024 Encounter for general adult medical examination without abnormal findings [facility] Start: 04-15-2024 End: 04-15-2024 Patient encounter procedure [facility] Work Phone: Start: 04-21-2022 Encounter for genera l adult medical examination without abnormal findings DR KRAIG DOLL [facility] Start: 04-18-2022 End: 04-19-[address] KRAIG DOLL Facility: Start: 04-18-2022 End: 04-19-2022 Encounter for general adult medical examination without abnormal findings DR KRAIG DOLL Facility:[facility]1 Plan of Treatment Date Care Activity Detail Author Comprehensive metabo lic 1999 panel - Serum or Plasma [facility] enter IgA [Mass/volume] in Serum or Plasma [facility] Tissue transglutamin ase IgA Ab [Units/volume] in Serum [facility] enter XR Chest 2 Views [facility] XR Elbow - left GE 3 Views [facility] Payers Date Payer Category Payer Unknown [id number] 1961 Unknown [id number] Social History Date Type Detail Facility Start: 04-15-2024 Tobacco smoking stat us [facility] Never smoked tobacco (finding) [facility] Start: 1995 Sex Assigned At Male F [facility] Evaluation note Note Date & Type Note Facility Evaluation note Diagnosis Onset Date Wellness examination noneact nathan [facility] Work Phone: Evaluation note Note Date & Type Note Facility Evaluation note Diagnosis Onset Date Abdominal pain acute Anterior chest wall pain acu te Arm paresthesia, left acute Hematochezia acute Left elbow pain acute [facility] Work Phone: Summary Purpose Family History No Family History Records Found Advance Directives Advance Directive Response Recorded Date/ Time Advance Directives No April 15 2:49pm Chief Complaint and Reason for Visit Chief Complaint wellness Reason for Visit Wellness examination Chief Complaint go over results Reason for Visit Abdominal pain Anterior chest wall pain Arm paresthesia, left Hematochezia Left elbow pain Additional Source Comments (unrecognized sect ion and content) No Status Records Found INFORMATION SOURCE (unrecogn ized section and content) DATE CREATED AUTHOR 04/21/2022 [facility] Care Teams (unrecognized sec tion and content) Team Status: Active Member Role Status Dates Kraig Doll DO Primary Care Provider Active Team Status: Active Member Role Status Dates Kraig Doll DO Primary Care Provide r, Attending Provider Active Start: April 18, 2024 Team Status: Inactive Member Role Status Dates Kraig Doll DO Primary Care Provide r, Attending Provider Active Start: July 15, 2024 End: July 15, 2024 Team Status: Active Member Role Status Dates Kraig Doll , DO Primary Care Provider Active Team Status: Inactive Member Role Status Dates Kraig Doll , DO Primary Care Provide r, Attending Provider Active Start: April 15, 2024 End: April 15, 2024 Team Status: Active Member Role Status Dates Kraig Doll , DO Primary Care Provide r, Attending Provider Active Start: April 18, 2024 Team Status: Inactive Member Role Status Dates Kraig Doll , DO Primary Care Provide r, Attending Provider Active Start: July 15, 2024 End: July 15, 2024 Goals (unrecognized section and content) Goals may be documented in a n alternate sectionGoals may be documented in an alternate section FOR RECORDS PERTAINING TO PATIENTS [...] BE BASED ON THE PRIMARY CLINICAL RECORDS. [employer] provides no warranty or guarantee of the accuracy or completeness of information in this document.
[2024-07-18 09:09] LABS: Immunoglobulin A, Qn 185 mg/dL (90-386)
[2024-07-18 15:08] LABS: t-Transglutaminase (tTG) IgA <2 U/mL (0-3)
== END 2024-07-16 16:14 | disposition home or self-care (01) ==
PROVIDERS: PCP Internal Medicine; Visit Provider Internal Medicine
DX: R10.9 Unspecified abdominal pain (principal)
CPT/HCPCS: 36415; 82784; 86364

== ENCOUNTER 2025-01-14 15:39 | Outpatient (OUT) | payer BC, SELFPAY ==
--- OUTSIDE RECORDS SUMMARY | 2025-01-14 15:48 | XMS_ITS | CCD ---
Author Organization [facility] Care Team Providers Care Customer Support Analyst Name Role Phone DR KRAIG DOLL Admitting Unavailable SHARMILA, DR LNI Attending Unavailable DR KRAIG DOLL Primary Care Unavailable SHARMILA, DR LIN Consulting Unavailable Medications Current Medications Medication Drug Class(es) Dates Sig (Normalized) Sig (Original) amphetamine aspartate 1.25 mg / amphetamine sulfate 1.25 mg / dextroamphetamine saccharate 1.25 mg / dextroamphetamine sulfate 1.25 mg oral tablet (7 sources) Central Nervous System Stimulant Start: 07-22-2024 End: 12-31-2024 Dextroamphetamin e-Amphetamine (Adderall) 5 mg tablet Active 5 MG PO Twice daily 60 December 31, 2024 administer doses at least 4-6 hours apart omeprazole 40 mg delayed release oral capsule (1 source) Proton Pump Inhibitor Start: 01-06-2025 Omeprazole 40 mg capsule,delayed release(/EC) Active 40 MG PO Daily January 06, 2025 12:00am Take on an empty stomach, 30 minutes prior to bkfst Problems Problem Classification Problem Date Documented Da te Episodic/Chronic Abdominal pain (7 sources) Abdominal pain; Translations: [Unspecified abdominal pain] 04-15-2024 Episodic Alcohol-related disorders (2 sources) Alcohol intake above recommended sensible limits; Translations: [Alcohol abuse, uncomplicated] 01-03-2025 Chronic Disorders usually diagnosed in infancy, childhood, or adolescence (4 sources) Attention deficit hyperactivity disorder, predominantly inattentive type; Translations: [Other specified behavioral and emotional disorders with onset usually occurring in childhood and adolescence] 07-15-2024 Chronic Gastrointestinal hemorrhage (4 sources) Hematochezia; Translations: [Melena] 04-15-2024 Episodic Nausea and vomiting (2 sources) Nausea and vomiting; Translations: [Nausea with vomiting, unspecified] 01-06-2025 Episodic Nonspecific chest pain (9 sources) Anterior chest wall pain; Translations: [Other chest pain] 04-15-2024 Episodic Other and unspecified benign neoplasm (2 sources) Melanocytic nevus of skin ; Translations: [Melanocytic nevi, unspecified] 11-17-2024 Episodic Other and unspecified benign neoplasm (2 sources) Melanocytic nevi, unspecified; Translations: [Benign neoplasm of skin, site unspecified] 11-17-2024 Episodic Other nervous system disorders (3 sources) Paresthesia of left upper limb; Translations: [Paresthesia of skin] 04-15-2024 Episodic Other nervous system disorders (1 source) Paresthesia of skin; Translations: [Disturbance of skin sensation] 07-15-2024 Episodic Other non-traumatic joint disorders (4 sources) Pain in elbow; Translations: [Pain in left elbow] 04-15-2024 Episodic Other non-traumatic joint disorders (1 source) Pain in left elbow; Translations: [Pain in joint, upper arm] 07-15-2024 Episodic Residual codes; unclassified (1 source) Family history of cancer of colon; Translations: [Family history of malignant neoplasm of digestive organs] 01-03-2025 Episodic Residual codes; unclassified (1 source) Family history of malignant neoplasm of digestive organs; Translations: [Family history of malignant neoplasm of gastrointestinal tract] 01-06-2025 Episodic Results Test Name Value Interpretation Reference Range Facility Basophils Auto (Bld) [#/Vol] on 04-18-2024 Basophils (Bld) [#/Vol] 0.1 10 3/uL 0.0-0.1 [facility] Basophils/100 WBC Auto (Bld) on 04-18-2024 Basophils/100 WBC (Bld) 1.2 % 0.2-2.0 [facility] Cholesterol in LDL Calc [Mas s/Vol]on 04-18-2024 Cholesterol in LDL [Mass/Vol] 125.0 mg/dL [facility] Comment on above: <100 mg/dl [id number] 0-129 mg/dl NEAR OR ABOVE [id number] mg/dl BORDERLINE [id number] mg/dl HIGH>190 mg/dl VERY HIGH Cholesterol in VLDL Calc [Ma ss/Vol]on 04-18-2024 Cholesterol in VLDL [Mass/Vol] 9.6 mg/dL [facility] Eosinophils/100 WBC Auto (Bl d)on 04-18-2024 Eosinophils/100 WBC (Bld) 4.8 % 0.9-7.0 [facility] Erythrocyte distribution wid th Auto (RBC) [Ratio]on 04-18-2024 Erythrocyte distribution width (RBC) [Ratio] 12.2 % 11.0-15.0 [facility] Estimated glomerular filtrat ion rate (GFR) non- Americanon 04-18-2024 GFR/1.73 sq M.predicted among non-blacks MDRD (S/P/Bld) [Vol rate/Area] mL/min/{1.73_m2} >=60 [facility] Globulin Calc (S) [Mass/Vol] on 04-18-2024 Globulin (S) [Mass/Vol] 3.2 g/dL [facility] Hematocrit Auto (Bld) [Volum e fraction]on 04-18-2024 Hematocrit (Bld) [Volume fraction] 43.3 % 42.0-54.0 [facility] Hemoglobin [Mass/volume] in Bloodon 04-18-2024 Hemoglobin (Bld) [Mass/Vol] 14.5 g/dL 14.0-18.0 [facility] Laboratory - Chemistry and C hemistry - challengeon 04-18-2024 Albumin [Mass/Vol] 3.7 g/dL 3.4-5.0 [facility] ALP [Catalytic activity/Vol] 44 U/L Low 46-116 [facility] ALT [Catalytic activity/Vol] 26 U/L 16-63 [facility] AST [Catalytic activity/Vol] 17 U/L 15-37 [facility] Bilirubin [Mass/Vol] 0.5 mg/dL 0.2-1.0 [facility] Calcium [Mass/Vol] 8.2 mg/dL Low 8.5-10.1 [facility] Chloride [Moles/Vol] 105 mmol/L 98-107 [facility] Cholesterol [Mass/Vol] 214 mg/dL High <=200 [facility] Cholesterol in HDL [Mass/Vol] 80 mg/dL High 40-60 [facility] Comment on above: > or =60 mg/dl - LOW CARDIOVASCULAR RISK<40 mg/dl - HIGH CARDIOVASCULAR RISK CO2 [Moles/Vol] 31.2 mmol/L 21.0-32.0 [facility] Creatinine [Mass/Vol] 1.14 mg/dL 0.70-1.30 [facility] GFR/1.73 sq M.predicted MDRD (S/P/Bld) [Vol rate/Area] mL/min/{1.73_m2} >=60 [facility] Glucose [Mass/Vol] 92 mg/dL 74-106 [facility] Potassium [Moles/Vol] 4.4 mmol/L 3.5-5.1 [facility] Protein [Mass/Vol] 6.9 g/dL 6.4-8.2 [facility] Sodium [Moles/Vol] 144 mmol/L 136-145 [facility] Triglyceride [Mass/Vol] 48 mg/dL <=150 [facility] TSH Qn 1.959 m[IU]/L 0.358-3.740 [facility] Urea nitrogen [Mass/Vol] 11.0 mg/dL 7.0-18.0 [facility] Urea nitrogen/Creatinine [Mass ratio] 9.6 mg/mg [facility] Laboratory - Hematology and Cell countson 04-18-2024 Immature granulocytes/100 WBC (Bld) 0.2 % 0.0-0.5 [facility] Leukocytes [#/volume] correc morgan for nucleated erythrocytes in Blood by Automated counon 04-18-2024 WBC corrected for nucl RBC Auto (Bld) [#/Vol] 6.1 10 3/uL 4.0-11.0 [facility] Lymphocytes Auto (Bld) [#/Vo l]on 04-18-2024 Lymphocytes (Bld) [#/Vol] 2.6 10 3/uL 1.2-3.8 [facility] Lymphocytes/100 WBC Auto (Bl d)on 04-18-2024 Lymphocytes/100 WBC (Bld) 43.3 % 20.5-60.0 [facility] MCH Auto (RBC) [Entitic mass ]on 04-18-2024 MCH (RBC) [Entitic mass] 32.6 pg 25.9-34.0 [facility] MCHC Auto (RBC) [Mass/Vol]on 04-18-2024 MCHC (RBC) [Mass/Vol] 33.5 g/dL 29.9-35.2 [facility] MCV Auto (RBC) [Entitic vol] on 04-18-2024 MCV (RBC) [Entitic vol] 97.3 fL High 80.0-94.0 [facility] Monocytes Auto (Bld) [#/Vol] on 04-18-2024 Monocytes (Bld) [#/Vol] 0.5 10 3/uL 0.3-0.8 [facility] Monocytes/100 WBC Auto (Bld) on 04-18-2024 Monocytes/100 WBC (Bld) 8.7 % 1.7-12.0 [facility] Neutrophils Auto (Bld) [#/Vo l]on 04-18-2024 Neutrophils (Bld) [#/Vol] 2.5 10 3/uL 1.4-6.5 [facility] Neutrophils/100 WBC Auto (Bl d)on 04-18-2024 Neutrophils/100 WBC (Bld) 41.8 % Low 43.0-75.0 [facility] No Panel Informationon 04-18 Eosinophils # (Auto) 0.3 10 3/uL 0.0-0.7 [facility] Immature Granulocyte # (Auto) 0.01 10 3/uL 0.00-0.03 [facility] Platelet mean volume Auto (B ld) [Entitic vol]on 04-18-2024 Platelet mean volume (Bld) [Entitic vol] 8.6 fL Low 9.5-13.5 [facility] Platelets Auto (Bld) [#/Vol] on 04-18-2024 Platelets (Bld) [#/Vol] 261 10 3/uL 150-450 [facility] RBC Auto (Bld) [#/Vol]on RBC (Bld) [#/Vol] 4.45 10 6/uL Low 4.70-6.10 [facility] Serum or plasma albumin/glob ulin mass ratioon 04-18-2024 Albumin/Globulin [Mass ratio] 1.2 {ratio} [facility] Serum or plasma anion gap de terminationon 04-18-2024 Anion gap [Moles/Vol] 12.2 mmol/L [facility] Serum or plasma total choles terol/high density lipoprotein (HDL) cholesterol mass chip 04-18-2024 Cholesterol.total/Cho lesterol in HDL [Mass ratio] 2.7 {ratio} [facility] Comment on above: 3.3 - 4.4 LOW RISK4. 4 - 7.1 AVERAGE RISK7.1 - 11.0 MODERATE RISK>11.0 HIGH RISK T3, TOTAL (TRIIODOTHYRONINE) on 04-19-2022 T3, TOTAL 94 ng/dL Normal 71-180 [facility] Comment on above: Performed By: #### T 3TOTAL #### [facility] [address] [place] [address] Dr. Rosetta Miguel CBC AUTO DIFFon 04-18-2022 BASO # 0.1 103/ul Normal 0.0-0.1 [facility] [place] Comment on above: Performed By: #### C BC #### [facility] [address] [place] [address] Dr. Rosetta Miguel Basophils/100 WBC (Bld) 0.8 % Normal 0.2-2.0 [facility] Comment on above: Performed By: #### C BC #### [facility] [address] [place] [address] Dr. Rosetta Miguel EO # 0.5 103/ul Normal 0.0-0.7 [facility] [place] Comment on above: Performed By: #### C BC #### [facility] [address] [place] [address] Dr. Rosetta Miguel Eosinophils/100 WBC (Bld) 6.5 % Normal 0.9-7.0 [facility] [place] Comment on above: Performed By: #### C BC #### [facility] [address] [place] [address] Dr. Rosetta Miguel Erythrocyte distribution width (RBC) [Ratio] 12.2 % Normal 11.0-15.0 [facility] Comment on above: Performed By: #### C BC #### [facility] [address] [place] [address] Dr. Rosetta Miguel Hematocrit (Bld) [Volume fraction] 45.7 % Normal 42.0-54.0 [facility] [place] Comment on above: Performed By: #### C BC #### [facility] [address] [place] [address] Dr. Rosetta Miguel Hemoglobin (Bld) [Mass/Vol] 15.6 g/dL Normal 14.0-18.0 [facility] [place] Comment on above: Performed By: #### C BC #### [facility] [address] [place] [address] Dr. Rosetta Miguel IG # 0.01 10e3/ul Normal 0.00-0.03 [facility] [place] Comment on above: Performed By: #### C BC #### [facility] [address] [place] [address] Dr. Rosetta Miguel IG % 0.1 % Normal 0.0-0.5 [facility] [place] Comment on above: Performed By: #### C BC #### [facility] [address] [place] [address] Dr. Rosetta Miguel LYMPH # 3.6 103/ul Normal 1.2-3.8 [facility] [place] Comment on above: Performed By: #### C BC #### [facility] [address] [place] [address] Dr. Rosetta Miguel Lymphocytes/100 WBC (Bld) 45.7 % Normal 20.5-60.0 [facility] [place] Comment on above: Performed By: #### C BC #### [facility] [address] [place] [address] Dr. Rosetta Miguel MANUAL DIFF REQ NO Normal [facility] Comment on above: Performed By: #### C BC #### [facility] [address] [place] [address] Dr. Rosetta Miguel MCH (RBC) [Entitic mass] 33.1 pg Normal 25.9-34.0 [facility] [place] Comment on above: Performed By: #### C BC #### [facility] [address] [place] [address] Dr. Rosetta Miguel MCHC (RBC) [Mass/Vol] 34.1 g/dL Normal 29.9-35.2 [facility] [place] Comment on above: Performed By: #### C BC #### [facility] [address] [address] [address] Rosetta Miguel MCV (RBC) [Entitic vol] 96.8 fL Critically high 80.0-94.0 [facility] [place] Comment on above: Performed By: #### C BC #### [facility] [address] [place] [address] Dr. Rosetta Miguel MONO # 0.4 103/ul Normal 0.3-0.8 [facility] Comment on above: Performed By: #### C BC #### [facility] [address] [place] [address] Dr. Rosetta Miguel Monocytes/100 WBC (Bld) 5.2 % Normal 1.7-12.0 [facility] [place] Comment on above: Performed By: #### C BC #### [facility] [address] [place] [address] Dr. Rosetta Miguel NEUT # 3.3 103/ul Normal 1.4-6.5 [facility] [place] Comment on above: Performed By: #### C BC #### [facility] [address] [place] [address] Dr. Rosetta Miguel Neutrophils/100 WBC (Bld) 41.7 % Critically low 43.0-75.0 [facility] [place] Comment on above: Performed By: #### C BC #### [facility] [address] [place] [address] Dr. Rosetta Miguel Platelet mean volume (Bld) [Entitic vol] 9.0 fL Critically low 9.5-13.5 [facility] Comment on above: Performed By: #### C BC #### [facility] [address] [place] [address] Dr. Rosetta Miguel PLT 277 103/ul Normal 150-450 [facility] Comment on above: Performed By: #### C BC #### [facility] [address] [place] [address] Dr. Rosetta Miguel RBC 4.72 106/ul Normal 4.70-6.10 [facility] [place] Comment on above: Performed By: #### C BC #### [facility] [address] [address] [address] Rosetta Miguel WBC 7.8 103/ul Normal 4.0-11.0 [facility] [place] Comment on above: Performed By: #### C BC #### [facility] [address] [address] [address] Rosetta Miguel FREE T4on 04-18-2022 Free T4 [Mass/Vol] 0.95 ng/dL Normal 0.76-1.46 [facility] Comment on above: Performed By: #### F T4 #### [facility] [address] [place] [address] Dr. Rosetta Miguel LIPID PROFILEon 04-18-2022 CHOL-HDL RATIO NORM SEE BELOW Normal [facility] Comment on above: Result Comment: 3.3 - 4.4 LOW RISK 4.4 - 7.1 AVERAGE RISK 7.1 - 11.0 MODERATE RISK >11.0 HIGH RISK Performed By: #### T SH, LIPID, CMP #### [facility] [address] [place] [address] Dr. Rosetta Miguel Cholesterol [Mass/Vol] 199 mg/dL Normal <=200 [facility] [place] Comment on above: Performed By: #### T SH, LIPID, CMP #### [facility] [address] [place] [address] Dr. Rosetta Miguel Cholesterol in HDL [Mass/Vol] 43 mg/dL Normal 40-60 [facility] [place] Comment on above: Performed By: #### T SH, LIPID, CMP #### [facility] [address] [address] [address] Rosetta Miguel Cholesterol in LDL [Mass/Vol] 127.0 mg/dL Normal [facility] [place] Comment on above: Performed By: #### T SH, LIPID, CMP #### [facility] [address] [place] [address] Dr. Rosetta Miguel Cholesterol.total/Cho lesterol in HDL [Mass ratio] 4.6 {ratio} Normal [facility] [place] Comment on above: Performed By: #### T SH, LIPID, CMP #### [facility] [address] [address] [address] Rosetta Miguel HDL NORMAL > or = 60 mg/dl - LOW CARDIOVASCULAR RISK <40 mg/dl - HIGH CARDIOVASCULAR RISK Normal [facility] [place] Comment on above: Performed By: #### T VALENTIN, LIPID, CMP #### [facility] [address] [address] [address] Rosetta Miguel LDL CALC NORMAL SEE BELOW Normal [facility] Comment on above: Result Comment: <100 mg/dl OPTIMAL 100 - 129 mg/dl NEAR OR ABOVE OPTIMAL 130 - 159 mg/dl BORDERLINE HIGH 160 - 189 mg/dl HIGH >190 mg/dl VERY HIGH Performed By: #### T SH, LIPID, CMP #### [facility] [address] [place] [address] Dr. Rosetta Miguel Triglyceride [Mass/Vol] 145 mg/dL Normal <=150 [facility] [place] Comment on above: Performed By: #### T VALENTIN, LIPID, CMP #### [facility] [address] [address] [address] Rosetta Miguel VLDL CALC 29.0 mg/dL Normal [facility] Comment on above: Performed By: #### T SH, LIPID, CMP #### [facility] [address] [place] [address] Dr. Rosetta Miguel PROF 14(COMP METB)on 022 Albumin [Mass/Vol] 4.1 g/dL Normal 3.4-5.0 [facility] Comment on above: Performed By: #### T SH, LIPID, CMP #### [facility] [address] [place] [address] Dr. Rosetta Miguel Albumin/Globulin [Mass ratio] 1.3 {ratio} Normal [facility] Comment on above: Performed By: #### T SH, LIPID, CMP #### [facility] [address] [place] [address] Dr. Rosetta Miguel ALP [Catalytic activity/Vol] 50 U/L Normal 46-116 [facility] Comment on above: Performed By: #### T SH, LIPID, CMP #### [facility] [address] [address] [address] Rosetta Miguel ALT [Catalytic activity/Vol] 20 U/L Normal 16-63 [facility] Comment on above: Performed By: #### T SH, LIPID, CMP #### [facility] [address] [address] [address] Rosetta Miguel Anion gap [Moles/Vol] 9.8 mmol/L Normal [facility] Comment on above: Performed By: #### T SH, LIPID, CMP #### [facility] [address] [address] [address] Rosetta Miguel AST [Catalytic activity/Vol] 19 U/L Normal 15-37 [facility] Comment on above: Performed By: #### T SH, LIPID, CMP #### [facility] [address] [place] [address] Dr. Rosetta Miguel Bilirubin [Mass/Vol] 0.3 mg/dL Normal 0.2-1.0 [facility] Comment on above: Performed By: #### T SH, LIPID, CMP #### [facility] [address] [address] [address] Rosetta Miguel Calcium [Mass/Vol] 8.7 mg/dL Normal 8.5-10.1 [facility] Comment on above: Performed By: #### T SH, LIPID, CMP #### [facility] [address] [address] [address] Rosetta Miguel Chloride [Moles/Vol] 107 mmol/L Normal 98-107 [facility] Comment on above: Performed By: #### T SH, LIPID, CMP #### [facility] [address] [address] [address] Rosetta Miguel CO2 [Moles/Vol] 31.1 mmol/L Normal 21.0-32.0 [facility] Comment on above: Performed By: #### T SH, LIPID, CMP #### [facility] [address] [address] [address] Rosetta Miguel Creatinine [Mass/Vol] 1.11 mg/dL Normal 0.70-1.30 [facility] [place] Comment on above: Performed By: #### T SH, LIPID, CMP #### [facility] [address] [address] [address] Rosetta Miguel EGFR-AF SWISS >60 Normal >=60 [facility] Comment on above: Performed By: #### T SH, LIPID, CMP #### [facility] [address] [address] [address] Rosetta Miguel EGFR-NON AF SWISS >60 Normal >=60 [facility] Comment on above: Performed By: #### T SH, LIPID, CMP #### [facility] [address] [address] [address] Rosetta Miguel Globulin (S) [Mass/Vol] 3.1 g/dL Normal [facility] Comment on above: Performed By: #### T SH, LIPID, CMP #### [facility] [address] [address] [address] Rosetta Miguel Glucose [Mass/Vol] 90 mg/dL Normal 74-106 [facility] Comment on above: Performed By: #### T SH, LIPID, CMP #### [facility] [address] [address] [address] Rosetta Miguel Potassium [Moles/Vol] 4.9 mmol/L Normal 3.5-5.1 [facility] Comment on above: Performed By: #### T SH, LIPID, CMP #### [facility] [address] [address] [address] Rosetta Miguel Protein [Mass/Vol] 7.2 g/dL Normal 6.4-8.2 [facility] Comment on above: Performed By: #### T SH, LIPID, CMP #### [facility] [address] [address] [address] Rosetta Miguel Sodium [Moles/Vol] 143 mmol/L Normal 136-145 [facility] Comment on above: Performed By: #### T SH, LIPID, CMP #### [facility] [address] [address] [address] Rosetta Miguel Urea nitrogen [Mass/Vol] 18.0 mg/dL Normal 7.0-18.0 [facility] Comment on above: Performed By: #### T SH, LIPID, CMP #### [facility] [address] [place] [address] Dr. Rosetta Miguel Urea nitrogen/Creatinine [Mass ratio] 16.2 mg/mg Normal The [facility] Comment on above: Performed By: #### T SH, LIPID, CMP #### [facility] [address] [address] [address] Rosetta Miguel TSHon 04-18-2022 TSH 1.988 uIU/mL Normal 0.358-3.740 [facility] Comment on above: Performed By: #### T SH, LIPID, CMP #### [facility] [address] [place] [address] Dr. Rosetta Miguel TSH RANGE SEE BELOW Normal [facility] Comment on above: Result Comment: <0.3 4 UIU/ml HYPERTHYROID 0.34-5.60 UIU/ml EUTHYROID >5.60 UIU/ml HYPOTHYROID Performed By: #### T SH, LIPID, CMP #### [facility] [address] [place] [address] Dr. Rosetta Miguel Vital Signs Date Time Vital Sign Value Performing Clinician Mor[facility] 01-06-2025 09:37-0500 Body height 187.96 cm [facility] 01-06-2025 09:37-0500 Body mass index (BMI) [Ratio] 19.3 kg/m2 [facility] 01-06-2025 09:37-0500 Body weight 68.49 kg [facility] 01-06-2025 09:37-0500 Diastolic blood pressure 89 mm[Hg] [facility] 01-06-2025 09:37-0500 Heart rate 93 /min [facility] 01-06-2025 09:37-0500 Respiratory rate 12 /min [facility] 01-06-2025 09:37-0500 Systolic blood pressure 134 mm[Hg] [facility] 11-17-2024 14:32-0500 Body height 187.96 cm [facility] 11-17-2024 14:32-0500 Body mass index (BMI) [Ratio] 19.9 kg/m2 [facility] 11-17-2024 14:32-0500 Body weight 70.42 kg [facility] 11-17-2024 14:32-0500 Diastolic blood pressure 89 mm[Hg] [facility] 11-17-2024 14:32-0500 Heart rate 90 /min [facility] 11-17-2024 14:32-0500 Respiratory rate 12 /min [facility] 11-17-2024 14:32-0500 Systolic blood pressure 139 mm[Hg] [facility] 07-15-2024 16:03-0400 Body height 187.96 cm [facility] 07-15-2024 16:03-0400 Body mass index (BMI) [Ratio] 20.2 kg/m2 [facility] 07-15-2024 16:03-0400 Body weight 71.72 kg [facility] 07-15-2024 16:03-0400 Diastolic blood pressure 83 mm[Hg] [facility] 07-15-2024 16:03-0400 Heart rate 85 /min [facility] 07-15-2024 16:03-0400 Respiratory rate 12 /min [facility] 07-15-2024 16:03-0400 Systolic blood pressure 159 mm[Hg] [facility] 04-15-2024 14:57-0400 Body height 187.96 cm [facility] 04-15-2024 14:57-0400 Body mass index (BMI) [Ratio] 19.8 kg/m2 [facility] 04-15-2024 14:57-0400 Body weight 69.96 kg [facility] 04-15-2024 14:57-0400 Diastolic blood pressure 83 mm[Hg] [facility] 04-15-2024 14:57-0400 Heart rate 82 /min [facility] 04-15-2024 14:57-0400 Respiratory rate 12 /min [facility] 04-15-2024 14:57-0400 Systolic blood pressure 138 mm[Hg] [facility] Encounters Encounter Date Encounter Type Care Provider Facility Start: 01-06-2025 End: 01-06-2025 ambulatory [facility] Work Phone: Start: 01-06-2025 End: 01-06-2025 Patient encounter procedure [facility] Work Phone: Start: 11-17-2024 End: 11-17-2024 ambulatory [facility] Work Phone: Start: 11-17-2024 End: 11-17-2024 Patient encounter procedure [facility] Work Phone: Start: 10-30-2024 Non-patient / Non-visit [facility] Work Phone: Start: 07-15-2024 End: 07-15-2024 ambulatory [facility] Work Phone: Start: 07-15-2024 End: 07-15-2024 Patient encounter procedure [facility] Work Phone: Start: 04-18-2024 Non-patient / Non-visit [facility] Work Phone: Start: 04-15-2024 End: 04-15-2024 ambulatory [facility] Work Phone: Start: 04-15-2024 End: 04-15-2024 Encounter for general adult medical examination without abnormal findings [facility] Start: 04-15-2024 End: 04-15-2024 Patient encounter procedure [facility] Work Phone: Start: 04-21-2022 Encounter for genera l adult medical examination without abnormal findings DR KRAIG DOLL [facility] Start: 04-18-2022 End: 04-19-[address] KRAIG DOLL Facility:[facility]1 Start: 04-18-2022 End: 04-19-2022 Encounter for general adult medical examination without abnormal findings DR KRAIG DOLL Facility:[facility]1 Plan of Treatment Date Care Activity Detail Author Comprehensive metabo lic 2000 panel - Serum or Plasma [facility] C enter Comprehensive metabo lic 1999 panel - Serum or Plasma [facility] enter IgA [Mass/volume] in Serum or Plasma [facility] Tissue transglutamin ase IgA Ab [Units/volume] in Serum [facility] enter US Gallbladder [facility] XR Chest 2 Views [facility] XR Elbow - left GE 3 Views F [facility] Payers Date Payer Category Payer Unknown [id number] 1961 Unknown [id number] Social History Date Type Detail Facility Start: 04-15-2024 End: 12-31-2024 Tobacco smoking status NHIS Never smoked tobacco (finding) [facility] Start: 1995 Sex Assigned At Male F [facility] Start: 11-17-2024 End: 01-06-2025 Sex Male (finding) [facility] Evaluation note 11-17-2024 Note Date & Type Note Facility 11-17-2024 Evaluation note Diagnosis Onset Date Resolution Abdominal pain acute November 2:21pm ADD (attention deficit disorder) acute November 17 2:21pm Benign nevus of skin acute 2024 2:21pm Chest wall pain, chronic acute November 17 2:21pm Abdominal pain acute December 132024 9:19am Excessive drinking of alcohol acute January 06, 2 025 9:19am Family hx of colon cancer acute January 06, 2 025 9:19am Nausea & vomiting acute Februar y 2024 9:19am [facility] Work Phone: Evaluation note Note Date & Type Note Facility Evaluation note Diagnosis Onset Date Wellness examination noneact nathan [facility] Work Phone: Evaluation note Note Date & Type Note Facility Evaluation note Diagnosis Onset Date Abdominal pain acute Anterior chest wall pain acu te Arm paresthesia, left acute Hematochezia acute Left elbow pain acute [facility] Work Phone: Evaluation note Note Date & Type Note Facility Evaluation note Diagnosis Onset Date Resolution Abdominal pain acute November 2:21pm ADD (attention deficit disorder) acute November 17 2:21pm Benign nevus of skin acute Ruben clau 2024 2:21pm Chest wall pain, chronic acute November 17 2:21pm [facility] Work Phone: Summary Purpose Family History No Family History Records Found Advance Directives Advance Directive Response Recorded Date/ Time Advance Directives No April 15 2:49pm Advance Directive Response Recorded Date/ Time Advance Directives No April 15 1:49pm Advance Directive Response Recorded Date/ Time Advance Directives No December 12:07pm Chief Complaint and Reason for Visit Chief Complaint wellness Reason for Visit Wellness examination Chief Complaint go over results Reason for Visit Abdominal pain Anterior chest wall pain Arm paresthesia, left Hematochezia Left elbow pain Chief Complaint Admit Date CC Adult Risk Stratification October 302023 11:49am 3 month follow up November 17, 2024 2: 21pm Reason for Visit Admit Date Abdominal pain November 17, 2024 2: 21pm ADD (attention deficit disorder) November 17, 2024 2:21pm Benign nevus of skin November 17, 2024 2 :21pm Chest wall pain, chronic November 17 2:21pm Chief Complaint Admit Date CC Adult Risk Stratification October 302023 11:49am 3 month follow up November 17, 2024 2: 21pm Abdominal Issues January 06, 2025 9:19am Reason for Visit Admit Date Abdominal pain November 17, 2024 2: 21pm ADD (attention deficit disorder) November 17, 2024 2:21pm Benign nevus of skin November 17, 2024 2 :21pm Chest wall pain, chronic November 17 2:21pm Abdominal pain January 06, 2025 9:19am Excessive drinking of alcohol December 132024 9:19am Family hx of colon cancer January 06, 2025 9:19am Nausea & vomiting January 06, 2025 9:19am Additional Source Comments (unrecognized sect ion and content) No Status Records Found INFORMATION SOURCE (unrecogn ized section and content) DATE CREATED AUTHOR 04/21/2022 [facility] Teams (unrecognized sec tion and content) [...] 2024 End: July 15, 2024 Team Status: Inactive Member Role Status Dates Kraig Doll , DO Primary Care Provide r, Attending Provider Active Start: April 15, 2024 End: April 15, 2024 Team Status: Active Member Role Status Dates Kraig Doll , DO Primary Care Provide r, Attending Provider Active Start: October 30, 2024 Team Status: Inactive Member Role Status Dates Kraig Doll , DO Primary Care Provide r, Attending Provider Active Start: November 17, 2024 End: November 17, 2024 Team Status: Inactive Member Role Status Dates Kraig Doll , DO Primary Care Provide r, Attending Provider Active Start: January 06, 2025 End: January 06, 2025 Goals (unrecognized section and content) Goals may be documented in a n alternate sectionGoals may be documented in an alternate sectionGoals may be documented in an alternate sectionGoals may be documented in an [...] BE BASED ON THE PRIMARY CLINICAL RECORDS. [facility] [employer] [facility]. provides no warranty or guarantee of the accuracy or completeness of information in this document.
--- NOTE | 2025-01-14 15:53 | US_ITS ---
The [address] [address] Patient Name: GREG MARTINEZ MRN: [id number] date: 1995 Sex: M Assigned Patient Location: LAB Current Patient Location: LAB Accession/Order Number: [id number] Exam Date: 01/14/2025 23:11 Report Date: 01/14/2025 23:14 At the request of: DELIA DOLL DO Procedure: US right upper quadrant LIMITED ABDOMINAL ULTRASOUND: CLINICAL HISTORY: nausea and vomiting R11.14 COMPARISON: None TECHNIQUE: Grayscale and color Doppler images of the right upper quadrant organs were obtained. FINDINGS: Pancreas: Visualized portions appear unremarkable. Liver: No focal mass or intrahepatic bile duct dilatation. Hepatopedal flow is seen within the portal vein. Gallbladder: Small polyps versus adherent stones. No wall thickening. Negative Randall sign. CBD: 3.8 mm Right kidney demonstrates no hydronephrosis. US/US right upper quadrant IMPRESSION: SMALL POLYPS VERSUS ADHERENT STONES INVOLVING THE GALLBLADDER. NO ACUTE PROCESS IS SEEN.. Impression dictated by: Sanju Metz Jr., D.O.01/14/2025 11:14 PM Dictation Location: [place] [address] Electronically authenticated by: [id number] Y Date: 01/14/2025 23:14
[2025-01-14 15:57] LABS: Bilirubin Urine NEGATIVE (NEGATIVE); Blood Urine NEGATIVE (NEGATIVE); Clarity Urine CLEAR (CLEAR); Color Urine LT. YELLOW (YELLOW); Glucose Urine UA NEGATIVE (NEGATIVE); Ketones Urine NEGATIVE (NEGATIVE); Leukocyte Esterase Urine NEGATIVE (NEGATIVE); Nitrite Urine NEGATIVE (NEGATIVE); Protein Urine NEGATIVE (NEG/TRACE); Urobilinogen Urine 0.2 EU/dL (0.2-1.0); pH Urine 7.5 (5.0-9.0)
[2025-01-14 15:58] LABS: Basophils Absolute Auto 0.1 10^3/uL (0.0-0.1); Basophils Percent Auto 0.5 % (0.2-2.0); Eosinophils Absolute Auto 0.3 10^3/uL (0.0-0.7); Hematocrit 43.3 % (42.0-54.0); Hemoglobin 14.9 g/dL (14.0-18.0); Immature Granulocytes Abs Auto 0.02 10^3/uL (0.00-0.03); Immature Granulocytes Pct Auto 0.2 % (0.0-0.5); Lymphocytes Absolute Auto 3.7 10^3/uL (1.2-3.8); Lymphocytes Percent Auto 38.4 % (20.5-60.0); Mean Corpuscular HGB Conc 34.4 g/dL (29.9-35.2); Mean Corpuscular Hemoglobin 32.6 pg (25.9-34.0); Mean Corpuscular Volume 94.7 fL (80.0-94.0); Mean Platelet Volume 8.7 fL (9.5-13.5); Monocytes Absolute Auto 0.5 10^3/uL (0.3-0.8); Monocytes Percent Auto 5.4 % (1.7-12.0); Neutrophils Absolute Auto 5.1 10^3/uL (1.4-6.5); Neutrophils Percent Auto 52.5 % (43.0-75.0); Platelet Count 313 10^3/uL (150-450); Red Blood Count 4.57 10^6/uL (4.70-6.10); Red Cell Distribution Width 11.9 % (11.0-15.0); White Blood Count 9.7 10^3/uL (4.0-11.0)
[2025-01-14 16:04] LABS: Bacteria Urine TRACE #/HPF (NONE SEEN); Cast Seen? NONE SEEN #/LPF (NONE SEEN); Crystals Seen? None Seen #/HPF (None Seen); Mucus Urine TRACE (NONE SEEN); RBC Urine NONE SEEN #/HPF (0-2); Squamous Epithelial Cell Urine FEW #/LPF (NONE/RARE); WBC Urine NONE SEEN #/HPF (NONE SEEN)
[2025-01-14 16:17] LABS: Alanine Aminotransferase 18 U/L (16-63); Albumin Globulin Ratio 1.5; Albumin Level 4.4 g/dL (3.4-5.0); Alkaline Phosphatase 49 U/L (46-116); Aspartate Amino Transferase 18 U/L (15-37); BUN Creatinine Ratio 11.9; Bilirubin Total 0.6 mg/dL (0.2-1.0); Calcium 8.9 mg/dL (8.5-10.1); Carbon Dioxide 30.9 mmol/L (21.0-32.0); Chloride 104 mmol/L (98-107); Estimated GFR (African America >60 (>=60 mL/min/1.73m^2); Estimated GFR (Non-African Ame >60 (>=60 mL/min/1.73m^2); Globulin 2.9 g/dL; Glucose 93 mg/dL (74-106); Potassium 3.9 mmol/L (3.5-5.1); Sodium 143 mmol/L (136-145); Total Protein 7.3 g/dL (6.4-8.2)
== END 2025-01-14 15:40 | disposition home or self-care (01) ==
LOC: US 15:40 → LAB 15:44
PROVIDERS: PCP Internal Medicine; Visit Provider Internal Medicine
DX: R11.14 Bilious vomiting (principal); R10.11 Right upper quadrant pain; R35.89 Other polyuria
CPT/HCPCS: 36415; 76705; 80053; 81001; 83690; 85025

== ENCOUNTER 2025-02-10 10:55 | Outpatient (OUT) | payer BC, SELFPAY ==
--- NOTE | 2025-02-10 10:58 | CT_ITS ---
The [address] [address] Patient Name: GREG MARTINEZ MRN: [id number] date: 1995 Sex: M Assigned Patient Location: CT Current Patient Location: CT Accession/Order Number: [id number] Exam Date: 02/10/2025 13:22 Report Date: 02/10/2025 13:24 At the request of: DELIA DOLL DO Procedure: CT abdomen pelvis w con CT Abdomen and Pelvis withcontrast TECHNIQUE: Axial imaging with 2-D reconstruction.100 cc of Omnipaque 300. The CT exam was performed using one or more the following dose reduction techniques: Automated exposure control, adjustment of the MA and/or Kv according to patient size, or use of the iterative reconstruction technique. COMPARISON: None History: Acute generalized abdominal pain. Nausea and vomiting. LIMITATIONS: None LOWER THORAX Unremarkable LIVER: Unremarkable GALLBLADDER: No gallbladder abnormality identified. BILE DUCTS: No dilatation SPLEEN: Unremarkable PANCREAS: Unremarkable ADRENAL GLANDS: Unremarkable KIDNEYS:Unremarkable AORTA: No abdominal aortic aneurysm identified. RETROPERITONEUM: No significant retroperitoneal abnormalities identified. MESENTERY:Unremarkable SMALL BOWEL: The small bowel loops are nondistended. APPENDIX: The appendix is normal. COLON: Unremarkable URINARY BLADDER: Urinary bladder is unremarkable. REPRODUCTIVE SYSTEM: Reproductive structures are unremarkable. PNEUMOPERITONEUM: None PERITONEAL FLUID:None BONY STRUCTURES: Unremarkable ABDOMINAL WALL: Unremarkable CT/CT abdomen pelvis w con IMPRESSION: No acute findings. Impression dictated by: Erik Tony M.D.02/10/2025 1:24 PM Dictation Location: [employer] Electronically authenticated by: [id number] Y Date: 02/10/2025 13:24
--- OUTSIDE RECORDS SUMMARY | 2025-02-10 10:59 | XMS_ITS | CCD ---
Author Organization [facility] CliniSyct Care Team Providers Care Agile Project Manager Name Role Phone DR KRAIG DOLL Admitting Unavailable SHARMILA, DR LIN Attending Unavailable SHARMILA, DR LIN Primary Care Unavailable SHARMILA, DR LIN Consulting Unavailable Medications Current Medications Medication Drug Class(es) Dates Sig (Normalized) Sig (Original) omeprazole 40 mg delayed release oral capsule (2 sources) Proton Pump Inhibitor Start: 01-06-2025 Omeprazole 40 mg capsule,delayed release(DR/EC) Active 40 MG PO Daily January 06, 2025 1:00am Take on an empty stomach, 30 minutes prior to bkfst Completed/Discontinued Medications Medication Drug Class(es) Dates Sig (Normalized) Sig (Original) amphetamine aspartate 1.25 mg / amphetamine sulfate 1.25 mg / dextroamphetamine saccharate 1.25 mg / dextroamphetamine sulfate 1.25 mg oral tablet (11 sources) Central Nervous System Stimulant Start: 07-22-2024 End: 12-31-2024 Dextroamphetamine- Amphetamine (Adderall) 5 mg tablet Discontinued 5 MG PO Twice daily November 17, 2024 December 31, 2024 1:36pm administer doses at least 4-6 hours apart Problems Problem Classification Problem Date Documented Da te Episodic/Chronic Abdominal pain (11 sources) Abdominal pain; Translations: [Unspecified abdominal pain] 04-15-2024 Episodic Alcohol-related disorders (5 sources) Alcohol intake above recommended sensible limits; Translations: [Alcohol abuse, uncomplicated] 01-03-2025 Chronic Disorders usually diagnosed in infancy, childhood, or adolescence (6 sources) Attention deficit hyperactivity disorder, predominantly inattentive type; Translations: [Other specified behavioral and emotional disorders with onset usually occurring in childhood and adolescence] 07-15-2024 Chronic Gastrointestinal hemorrhage (5 sources) Hematochezia; Translations: [Melena] 04-15-2024 Episodic Nausea and vomiting (5 sources) Nausea and vomiting; Translations: [Nausea with vomiting, unspecified] 01-06-2025 Episodic Nonspecific chest pain (12 sources) Anterior chest wall pain; Translations: [Other chest pain] 04-15-2024 Episodic Other and unspecified benign neoplasm (3 sources) Melanocytic nevus of skin ; Translations: [Melanocytic nevi, unspecified] 11-17-2024 Episodic Other and unspecified benign neoplasm (3 sources) Melanocytic nevi, unspecified; Translations: [Benign neoplasm of skin, site unspecified] 11-17-2024 Episodic Other nervous system disorders (4 sources) Paresthesia of left upper limb; Translations: [Paresthesia of skin] 04-15-2024 Episodic Other nervous system disorders (1 source) Paresthesia of skin; Translations: [Disturbance of skin sensation] 07-15-2024 Episodic Other non-traumatic joint disorders (5 sources) Pain in elbow; Translations: [Pain in left elbow] 04-15-2024 Episodic Other non-traumatic joint disorders (1 source) Pain in left elbow; Translations: [Pain in joint, upper arm] 07-15-2024 Episodic Residual codes; unclassified (2 sources) Family history of cancer of colon; Translations: [Family history of malignant neoplasm of digestive organs] 01-03-2025 Episodic Residual codes; unclassified (3 sources) Family history of malignant neoplasm of digestive organs; Translations: [Family history of malignant neoplasm of gastrointestinal tract] 01-06-2025 Episodic Results Test Name Value Interpretation Reference Range Facility Basophils Auto (Bld) [#/Vol] on 01-14-2025 Basophils (Bld) [#/Vol] Automated basophil count 0.0-0.1 [facility] Basophils/100 WBC Auto (Bld) on 01-14-2025 Basophils/100 WBC (Bld) Automated basophil % 0.2-2.0 [facility] Eosinophils/100 WBC Auto (Bl d)on 01-14-2025 Eosinophils/100 WBC (Bld) Automated eosinophil % 0.9-7.0 [facility] Erythrocyte distribution wid th Auto (RBC) [Ratio]on 01-14-2025 Erythrocyte distribution width (RBC) [Ratio] Erythrocyte distribution width [Ratio] by Automated count 11.0-15.0 [facility] Estimated glomerular filtrat ion rate (GFR) non- Americanon 01-14-2025 GFR/1.73 sq M.predicted among non-blacks MDRD (S/P/Bld) [Vol rate/Area] Estimated glomerular filtration rate (GFR) non- >=60 mL/min/1.73m 2 [facility] Globulin Calc (S) [Mass/Vol] on 01-14-2025 Globulin (S) [Mass/Vol] Serum globulin measurement by calculation (mass/volume) [facility] Hematocrit Auto (Bld) [Volum e fraction]on 01-14-2025 Hematocrit (Bld) [Volume fraction] Hematocrit [Volume Fraction] of Blood by Automated count 42.0-54.0 [facility] Hemoglobin [Mass/volume] in Bloodon 01-14-2025 Hemoglobin (Bld) [Mass/Vol] Hemoglobin [Mass/volume] in Blood 14.0-18.0 [facility] Laboratory - Chemistry and C hemistry - challengeon 01-14-2025 Albumin [Mass/Vol] 4.4 g/dL 3.4-5.0 [facility] ALP [Catalytic activity/Vol] 49 U/L 46-116 [facility] ALT [Catalytic activity/Vol] 18 U/L 16-63 [facility] AST [Catalytic activity/Vol] 18 U/L 15-37 [facility] Bilirubin [Mass/Vol] 0.6 mg/dL 0.2-1.[address] [facility] Calcium [Mass/Vol] 8.9 mg/dL 8.5-10.1 [facility] Chloride [Moles/Vol] 104 mmol/L 98-[address] [facility] CO2 [Moles/Vol] 30.9 mmol/L 21.0-32.0 [facility] Creatinine [Mass/Vol] 1.18 mg/dL 0.70-1.30 [facility] GFR/1.73 sq M.predicted MDRD (S/P/Bld) [Vol rate/Area] mL/min/{1.73_m2} >=60 mL/min/1.73m 2 [facility] Glucose [Mass/Vol] 93 mg/dL 74-106 [facility] Lipase [Catalytic activity/Vol] 40.0 U/L 16.0-77.0 [facility] Potassium [Moles/Vol] 3.9 mmol/L 3.5-5.1 [facility] Protein [Mass/Vol] 7.3 g/dL 6.4-8.2 [facility] Sodium [Moles/Vol] 143 mmol/L 136-145 [facility] Urea nitrogen [Mass/Vol] 14.0 mg/dL 7.0-18.0 [facility] Urea nitrogen/Creatinine [Mass ratio] 11.9 mg/mg [facility] Laboratory - Hematology and Cell countson 01-14-2025 Immature granulocytes/100 WBC (Bld) 0.2 % 0.0-0.5 [facility] Leukocytes [#/volume] correc morgan for nucleated erythrocytes in Blood by Automated counon 01-14-2025 WBC corrected for nucl RBC Auto (Bld) [#/Vol] Leukocytes [#/volume] corrected for nucleated erythrocytes in Blood by Automated coun 4.0-11.0 [facility] Lymphocytes Auto (Bld) [#/Vo l]on 01-14-2025 Lymphocytes (Bld) [#/Vol] Lymphocytes [#/volume] in Blood by Automated count 1.2-3.8 [facility] Lymphocytes/100 WBC Auto (Bl d)on 01-14-2025 Lymphocytes/100 WBC (Bld) Lymphocytes/100 leukocytes in Blood by Automated count 20.5-60.0 [facility] MCH Auto (RBC) [Entitic mass ]on 01-14-2025 MCH (RBC) [Entitic mass] MCH [Entitic mass] by Automated count 25.9-34.0 [facility] MCHC Auto (RBC) [Mass/Vol]on 01-14-2025 MCHC (RBC) [Mass/Vol] MCHC [Mass/volume] by Automated count 29.9-35.2 [facility] MCV Auto (RBC) [Entitic vol] on 01-14-2025 MCV (RBC) [Entitic vol] MCV [Entitic volume] by Automated count High 80.0-94.0 [facility] Monocytes Auto (Bld) [#/Vol] on 01-14-2025 Monocytes (Bld) [#/Vol] Automated blood monocyte count 0.3-0.8 [facility] Monocytes/100 WBC Auto (Bld) on 01-14-2025 Monocytes/100 WBC (Bld) Automated monocyte % 1.7-12.0 [facility] Neutrophils Auto (Bld) [#/Vo l]on 01-14-2025 Neutrophils (Bld) [#/Vol] Neutrophils [#/volume] in Blood by Automated count 1.4-6.5 [facility] Neutrophils/100 WBC Auto (Bl d)on 01-14-2025 Neutrophils/100 WBC (Bld) Automated neutrophil % 43.0-75.0 [facility] No Panel Informationon 01-14 Eosinophils # (Auto) 0.3 10 3/uL 0.0-0.7 [facility] Immature Granulocyte # (Auto) 0.02 10 3/uL 0.00-0.03 [facility] Platelet mean volume Auto (B ld) [Entitic vol]on 01-14-2025 Platelet mean volume (Bld) [Entitic vol] Platelet mean volume [Entitic volume] in Blood by Automated count Low 9.5-13.5 [facility] Platelets Auto (Bld) [#/Vol] on 01-14-2025 Platelets (Bld) [#/Vol] Platelets [#/volume] in Blood by Automated count 150-450 [facility] RBC Auto (Bld) [#/Vol]on RBC (Bld) [#/Vol] Erythrocytes [#/volume] in Blood by Automated count Low 4.70-6.10 [facility] Serum or plasma albumin/glob ulin mass ratioon 01-14-2025 Albumin/Globulin [Mass ratio] Serum or plasma albumin/globulin mass ratio [facility] Serum or plasma anion gap de terminationon 01-14-2025 Anion gap [Moles/Vol] Serum or plasma anion gap determination [facility] Basophils Auto (Bld) [#/Vol] on 04-18-2024 Basophils (Bld) [#/Vol] 0.1 10 3/uL 0.0-0.1 [facility] Basophils/100 WBC Auto (Bld) on 04-18-2024 Basophils/100 WBC (Bld) 1.2 % 0.2-2.0 [facility] Cholesterol in LDL Calc [Mas s/Vol]on 04-18-2024 Cholesterol in LDL [Mass/Vol] 125.0 mg/dL [facility] Comment on above: <100 mg/dl [id number] 0-129 mg/dl NEAR OR ABOVE [id number] mg/dl BORDERLINE [id number] mg/dl HIGH>190 mg/dl VERY HIGH Cholesterol in VLDL Calc [Ma ss/Vol]on 04-18-2024 Cholesterol in VLDL [Mass/Vol] 9.6 mg/dL [facility] Eosinophils/100 WBC Auto (Bl d)on 04-18-2024 Eosinophils/100 WBC (Bld) 4.8 % 0.9-7.0 [facility] Erythrocyte distribution wid th Auto (RBC) [Ratio]on 04-18-2024 Erythrocyte distribution width (RBC) [Ratio] 12.2 % 11.0-15.0 [facility] Estimated glomerular filtrat ion rate (GFR) non- Americanon 04-18-2024 GFR/1.73 sq M.predicted among non-blacks MDRD (S/P/Bld) [Vol rate/Area] mL/min/{1.73_m2} >=60 [facility] Globulin Calc (S) [Mass/Vol] on 04-18-2024 Globulin (S) [Mass/Vol] 3.2 g/dL [facility] Hematocrit Auto (Bld) [Volum e fraction]on 04-18-2024 Hematocrit (Bld) [Volume fraction] 43.3 % 42.0-54.0 [facility] Hemoglobin [Mass/volume] in Bloodon 04-18-2024 Hemoglobin (Bld) [Mass/Vol] 14.5 g/dL 14.0-18.0 [facility] Laboratory - Chemistry and C hemistry - challengeon 04-18-2024 Albumin [Mass/Vol] 3.7 g/dL 3.4-5.0 [facility] ALP [Catalytic activity/Vol] 44 U/L Low 46-116 [facility] ALT [Catalytic activity/Vol] 26 U/L 16-63 [facility] AST [Catalytic activity/Vol] 17 U/L 15-37 [facility] Bilirubin [Mass/Vol] 0.5 mg/dL 0.2-1.[address] [facility] Calcium [Mass/Vol] 8.2 mg/dL Low 8.5-10.1 [facility] Chloride [Moles/Vol] 105 mmol/L 98-[address] [facility] Cholesterol [Mass/Vol] 214 mg/dL High <=200 [facility] Cholesterol in HDL [Mass/Vol] 80 mg/dL High 40-60 [facility] Comment on above: > or =60 mg/dl - LOW CARDIOVASCULAR RISK<40 mg/dl - HIGH CARDIOVASCULAR RISK CO2 [Moles/Vol] 31.2 mmol/L 21.0-32.0 [facility] Creatinine [Mass/Vol] 1.14 mg/dL 0.70-1.30 [facility] GFR/1.73 sq M.predicted MDRD (S/P/Bld) [Vol rate/Area] mL/min/{1.73_m2} >=60 [facility] Glucose [Mass/Vol] 92 mg/dL 74-106 [facility] Potassium [Moles/Vol] 4.4 mmol/L 3.5-5.1 [facility] Protein [Mass/Vol] 6.9 g/dL 6.4-8.2 [facility] Sodium [Moles/Vol] 144 mmol/L 136-145 [facility] Triglyceride [Mass/Vol] 48 mg/dL <=150 [facility] TSH Qn 1.959 m[IU]/L 0.358-3.740 [facility] Urea nitrogen [Mass/Vol] 11.0 mg/dL 7.0-18.0 [facility] Urea nitrogen/Creatinine [Mass ratio] 9.6 mg/mg [facility] Laboratory - Hematology and Cell countson 04-18-2024 Immature granulocytes/100 WBC (Bld) 0.2 % 0.0-0.5 [facility] Leukocytes [#/volume] correc morgan for nucleated erythrocytes in Blood by Automated counon 04-18-2024 WBC corrected for nucl RBC Auto (Bld) [#/Vol] 6.1 10 3/uL 4.0-11.0 [facility] Lymphocytes Auto (Bld) [#/Vo l]on 04-18-2024 Lymphocytes (Bld) [#/Vol] 2.6 10 3/uL 1.2-3.8 [facility] Lymphocytes/100 WBC Auto (Bl d)on 04-18-2024 Lymphocytes/100 WBC (Bld) 43.3 % 20.5-60.0 [facility] MCH Auto (RBC) [Entitic mass ]on 04-18-2024 MCH (RBC) [Entitic mass] 32.6 pg 25.9-34.0 [facility] MCHC Auto (RBC) [Mass/Vol]on 04-18-2024 MCHC (RBC) [Mass/Vol] 33.5 g/dL 29.9-35.2 [facility] MCV Auto (RBC) [Entitic vol] on 04-18-2024 MCV (RBC) [Entitic vol] 97.3 fL High 80.0-94.0 [facility] Monocytes Auto (Bld) [#/Vol] on 04-18-2024 Monocytes (Bld) [#/Vol] 0.5 10 3/uL 0.3-0.8 [facility] Monocytes/100 WBC Auto (Bld) on 04-18-2024 Monocytes/100 WBC (Bld) 8.7 % 1.7-12.0 [facility] Neutrophils Auto (Bld) [#/Vo l]on 04-18-2024 Neutrophils (Bld) [#/Vol] 2.5 10 3/uL 1.4-6.5 [facility] Neutrophils/100 WBC Auto (Bl d)on 04-18-2024 Neutrophils/100 WBC (Bld) 41.8 % Low 43.0-75.0 [facility] No Panel Informationon 04-18 Eosinophils # (Auto) 0.3 10 3/uL 0.0-0.7 [facility] Immature Granulocyte # (Auto) 0.01 10 3/uL 0.00-0.03 [facility] Platelet mean volume Auto (B ld) [Entitic vol]on 04-18-2024 Platelet mean volume (Bld) [Entitic vol] 8.6 fL Low 9.5-13.5 [facility] Platelets Auto (Bld) [#/Vol] on 04-18-2024 Platelets (Bld) [#/Vol] 261 10 3/uL 150-450 [facility] RBC Auto (Bld) [#/Vol]on RBC (Bld) [#/Vol] 4.45 10 6/uL Low 4.70-6.10 [facility] Serum or plasma albumin/glob ulin mass ratioon 04-18-2024 Albumin/Globulin [Mass ratio] 1.2 {ratio} [facility] Serum or plasma anion gap de terminationon 04-18-2024 Anion gap [Moles/Vol] 12.2 mmol/L [facility] Serum or plasma total choles terol/high density lipoprotein (HDL) cholesterol mass chip 04-18-2024 Cholesterol.total/Cho lesterol in HDL [Mass ratio] 2.7 {ratio} [facility] Comment on above: 3.3 - 4.4 LOW RISK4. 4 - 7.1 AVERAGE RISK7.1 - 11.0 MODERATE RISK>11.0 HIGH RISK T3, TOTAL (TRIIODOTHYRONINE) on 04-19-2022 T3, TOTAL 94 ng/dL Normal 71-180 [facility] Comment on above: Performed By: #### T 3TOTAL #### [facility] [address] [address] [address] Rosetta Miguel CBC AUTO DIFFon 04-18-2022 BASO # 0.1 103/ul Normal 0.0-0.1 [facility] Comment on above: Performed By: #### C BC #### [facility] [address] [address] [address] Rosetta Miguel Basophils/100 WBC (Bld) 0.8 % Normal 0.2-2.0 [facility] Comment on above: Performed By: #### C BC #### [facility] [address] [address] [address] Rosetta Miguel EO # 0.5 103/ul Normal 0.0-0.7 [facility] Comment on above: Performed By: #### C BC #### [facility] [address] [place] [address] Dr. Rosetta Miguel Eosinophils/100 WBC (Bld) 6.5 % Normal 0.9-7.0 [facility] Comment on above: Performed By: #### C BC #### [facility] [address] [place] [address] Dr. Rosetta Miguel Erythrocyte distribution width (RBC) [Ratio] 12.2 % Normal 11.0-15.0 [facility] Comment on above: Performed By: #### C BC #### [facility] [address] [place] [address] Dr. Rosetta Miguel Hematocrit (Bld) [Volume fraction] 45.7 % Normal 42.0-54.0 [facility] Comment on above: Performed By: #### C BC #### [facility] [address] [place] [address] Dr. Rosetta Miguel Hemoglobin (Bld) [Mass/Vol] 15.6 g/dL Normal 14.0-18.0 [facility] Comment on above: Performed By: #### C BC #### [facility] [address] [place] [address] Dr. Rosetta Miguel IG # 0.01 10e3/ul Normal 0.00-0.03 [facility] Comment on above: Performed By: #### C BC #### [facility] [address] [place] [address] Dr. Rosetta Miguel IG % 0.1 % Normal 0.0-0.5 [facility] Comment on above: Performed By: #### C BC #### [facility] [address] [place] [address] Dr. Rosetta Miguel LYMPH # 3.6 103/ul Normal 1.2-3.8 [facility] Comment on above: Performed By: #### C BC #### [facility] [address] [place] [address] Dr. Rosetta Miguel Lymphocytes/100 WBC (Bld) 45.7 % Normal 20.5-60.0 [facility] Comment on above: Performed By: #### C BC #### [facility] [address] [place] [address] Dr. Rosetta Miguel MANUAL DIFF REQ NO Normal [facility] Comment on above: Performed By: #### C BC #### [facility] [address] [place] [address] Dr. Rosetta Miguel MCH (RBC) [Entitic mass] 33.1 pg Normal 25.9-34.0 [facility] Comment on above: Performed By: #### C BC #### [facility] [address] [place] [address] Dr. Rosetta Miguel MCHC (RBC) [Mass/Vol] 34.1 g/dL Normal 29.9-35.2 [facility] Comment on above: Performed By: #### C BC #### [facility] [address] [place] [address] Dr. Rosetta Miguel MCV (RBC) [Entitic vol] 96.8 fL Critically high 80.0-94.0 [facility] Comment on above: Performed By: #### C BC #### [facility] [address] [place] [address] Dr. Rosetta Miguel MONO # 0.4 103/ul Normal 0.3-0.8 [facility] Comment on above: Performed By: #### C BC #### [facility] [address] [place] [address] Dr. Rosetta Miguel Monocytes/100 WBC (Bld) 5.2 % Normal 1.7-12.0 [facility] Comment on above: Performed By: #### C BC #### [facility] [address] [place] [address] Dr. Rosetta Miguel NEUT # 3.3 103/ul Normal 1.4-6.5 [facility] Comment on above: Performed By: #### C BC #### [facility] [address] [place] [address] Dr. Rosetta Miguel Neutrophils/100 WBC (Bld) 41.7 % Critically low 43.0-75.0 [facility] Comment on above: Performed By: #### C BC #### [facility] [address] [place] [address] Dr. Rosetta Miguel Platelet mean volume (Bld) [Entitic vol] 9.0 fL Critically low 9.5-13.5 [facility] Comment on above: Performed By: #### C BC #### [facility] [address] [place] [address] Dr. Rosetta Miguel PLT 277 103/ul Normal 150-450 [facility] Comment on above: Performed By: #### C BC #### [facility] [address] [place] [address] Dr. Rosetta Miguel RBC 4.72 106/ul Normal 4.70-6.10 [facility] Comment on above: Performed By: #### C BC #### [facility] [address] [place] [address] Dr. Rosetta Miguel WBC 7.8 103/ul Normal 4.0-11.0 [facility] Comment on above: Performed By: #### C BC #### [facility] [address] [place] [address] Dr. Rosetta Miguel FREE T4on 04-18-2022 Free T4 [Mass/Vol] 0.95 ng/dL Normal 0.76-1.46 [facility] Comment on above: Performed By: #### F T4 #### [facility] [address] [place] [address] Dr. Rosetta Miguel LIPID PROFILEon 04-18-2022 CHOL-HDL RATIO NORM SEE BELOW Normal [facility] Comment on above: Result Comment: 3.3 - 4.4 LOW RISK 4.4 - 7.1 AVERAGE RISK 7.1 - 11.0 MODERATE RISK >11.0 HIGH RISK Performed By: #### T SH, LIPID, CMP #### [facility] [address] [place] [address] Dr. Rosetta Miguel Cholesterol [Mass/Vol] 199 mg/dL Normal <=200 [facility] Comment on above: Performed By: #### T SH, LIPID, CMP #### [facility] [address] [place] [address] Dr. Rosetta Miguel Cholesterol in HDL [Mass/Vol] 43 mg/dL Normal 40-60 [facility] Comment on above: Performed By: #### T SH, LIPID, CMP #### [facility] [address] [address] [address] Rosetta Miguel Cholesterol in LDL [Mass/Vol] 127.0 mg/dL Normal [facility] Comment on above: Performed By: #### T SH, LIPID, CMP #### [facility] [address] [address] [address] Rosetta Miguel Cholesterol.total/Cho lesterol in HDL [Mass ratio] 4.6 {ratio} Normal [facility] Comment on above: Performed By: #### T SH, LIPID, CMP #### [facility] [address] [place] [address] Dr. Rosetta Miguel HDL NORMAL > or = 60 mg/dl - LOW CARDIOVASCULAR RISK <40 mg/dl - HIGH CARDIOVASCULAR RISK Normal [facility] Comment on above: Performed By: #### T VALENTIN, LIPID, CMP #### [facility] [address] [place] [address] Dr. Rosetta Miguel LDL CALC NORMAL SEE BELOW Normal [facility] Comment on above: Result Comment: <100 mg/dl OPTIMAL 100 - 129 mg/dl NEAR OR ABOVE OPTIMAL 130 - 159 mg/dl BORDERLINE HIGH 160 - 189 mg/dl HIGH >190 mg/dl VERY HIGH Performed By: #### T VALENTIN, LIPID, CMP #### [facility] [address] [place] [address] Dr. Rosetta Miguel Triglyceride [Mass/Vol] 145 mg/dL Normal <=150 [facility] Comment on above: Performed By: #### T SH, LIPID, CMP #### [facility] [address] [place] [address] Dr. Rosetta Miguel VLDL CALC 29.0 mg/dL Normal [facility] Comment on above: Performed By: #### T SH, LIPID, CMP #### [facility] [address] [place] [address] Dr. Rosetta Miguel PROF 14(COMP METB)on 022 Albumin [Mass/Vol] 4.1 g/dL Normal 3.4-5.0 [facility] Comment on above: Performed By: #### T SH, LIPID, CMP #### [facility] [address] [address] [address] Rosetta Miguel Albumin/Globulin [Mass ratio] 1.3 {ratio} Normal [facility] Comment on above: Performed By: #### T SH, LIPID, CMP #### [facility] [address] [address] [address] Rosetta Miguel ALP [Catalytic activity/Vol] 50 U/L Normal 46-116 [facility] Comment on above: Performed By: #### T SH, LIPID, CMP #### [facility] [address] [place] [address] Dr. Rosetta Miguel ALT [Catalytic activity/Vol] 20 U/L Normal 16-63 [facility] Comment on above: Performed By: #### T SH, LIPID, CMP #### [facility] [address] [address] [address] Rosetta Miguel Anion gap [Moles/Vol] 9.8 mmol/L Normal [facility] Comment on above: Performed By: #### T SH, LIPID, CMP #### [facility] [address] [place] [address] Dr. Rosetta Miguel AST [Catalytic activity/Vol] 19 U/L Normal 15-37 [facility] Comment on above: Performed By: #### T SH, LIPID, CMP #### [facility] [address] [address] [address] Rosetta Miguel Bilirubin [Mass/Vol] 0.3 mg/dL Normal 0.2-1.0 [facility] Comment on above: Performed By: #### T SH, LIPID, CMP #### [facility] [address] [place] [address] Dr. Rosetta Miguel Calcium [Mass/Vol] 8.7 mg/dL Normal 8.5-10.1 [facility] Comment on above: Performed By: #### T SH, LIPID, CMP #### [facility] [address] [place] [address] Dr. Rosetta Miguel Chloride [Moles/Vol] 107 mmol/L Normal 98-107 [facility] Comment on above: Performed By: #### T SH, LIPID, CMP #### [facility] [address] [place] [address] Dr. Rosetta Miguel CO2 [Moles/Vol] 31.1 mmol/L Normal 21.0-32.0 [facility] Comment on above: Performed By: #### T SH, LIPID, CMP #### [facility] [address] [place] [address] Dr. Rosetta Miguel Creatinine [Mass/Vol] 1.11 mg/dL Normal 0.70-1.30 [facility] Comment on above: Performed By: #### T VALENTIN, LIPID, CMP #### [facility] [address] [place] [address] Dr. Rosetta Miguel EGFR-AF ERITREAN >60 Normal >=60 [facility] Comment on above: Performed By: #### T VALENTIN, LIPID, CMP #### [facility] [address] [place] [address] Dr. Rosetta Miguel EGFR-NON AF ERITREAN >60 Normal >=60 [facility] Comment on above: Performed By: #### T VALENTIN, LIPID, CMP #### [facility] [address] [place] [address] Dr. Rosetta Miguel Globulin (S) [Mass/Vol] 3.1 g/dL Normal [facility] Comment on above: Performed By: #### T VALENTIN, LIPID, CMP #### [facility] [address] [place] [address] Dr. Rosetta Miguel Glucose [Mass/Vol] 90 mg/dL Normal 74-106 [facility] Comment on above: Performed By: #### T SH, LIPID, CMP #### [facility] [address] [place] [address] Dr. Rosetta Miguel Potassium [Moles/Vol] 4.9 mmol/L Normal 3.5-5.1 [facility] Comment on above: Performed By: #### T SH, LIPID, CMP #### [facility] [address] [place] [address] Dr. Rosetta Miguel Protein [Mass/Vol] 7.2 g/dL Normal 6.4-8.2 [facility] Comment on above: Performed By: #### T VALENTIN, LIPID, CMP #### [facility] [address] [place] [address] Dr. Rosetta Miguel Sodium [Moles/Vol] 143 mmol/L Normal 136-145 [facility] Comment on above: Performed By: #### T VALENTIN LIPID, CMP #### [facility] [address] [place] [address] Dr. Rosetta Miguel Urea nitrogen [Mass/Vol] 18.0 mg/dL Normal 7.0-18.0 [facility] Comment on above: Performed By: #### T VALENTIN LIPID, CMP #### [facility] [address] [place] [address] Dr. Rosetta Miguel Urea nitrogen/Creatinine [Mass ratio] 16.2 mg/mg Normal [facility] Comment on above: Performed By: #### T VALENTIN LIPID, CMP #### [facility] [address] [place] [address] Dr. Rsoetta Miguel TSHon 04-18-2022 TSH 1.988 uIU/mL Normal 0.358-3.[address] [facility] Comment on above: Performed By: #### T VALENTIN LIPID, CMP #### [facility] [address] [place] [address] Dr. Rosetta Miguel TSH RANGE SEE BELOW Normal [facility] Comment on above: Result Comment: <0.3 4 UIU/ml HYPERTHYROID 0.34-5.60 UIU/ml EUTHYROID >5.60 UIU/ml HYPOTHYROID Performed By: #### T VALENTIN, LIPID, CMP #### [facility] [address] [place] [address] Dr. Rosetta Miguel Vital Signs Date Time Vital Sign Value Performing Clinician Faci lity 01-26-2025 13:50-0400 Body height 187.[address] [facility] 01-26-2025 13:50-0400 Body mass index (BMI) [Ratio] 19 kg/m2 [facility] 01-26-2025 13:50-0400 Body weight 67.[address] [facility] 01-26-2025 13:50-0400 Diastolic blood pressure 84 mm[Hg] [facility] 01-26-2025 13:50-0400 Heart rate 89 /min [facility] 01-26-2025 13:50-0400 Respiratory rate 12 /min [facility] 01-26-2025 13:50-0400 Systolic blood pressure 129 mm[Hg] [facility] 01-06-2025 09:37-0500 Body height 187.[address] [facility] 01-06-2025 09:37-0500 Body mass index (BMI) [Ratio] 19.3 kg/m2 [facility] 01-06-2025 09:37-0500 Body weight 68.[address] [facility] 01-06-2025 09:37-0500 Diastolic blood pressure 89 mm[Hg] [facility] 01-06-2025 09:37-0500 Heart rate 93 /min [facility] 01-06-2025 09:37-0500 Respiratory rate 12 /min [facility] 01-06-2025 09:37-0500 Systolic blood pressure 134 mm[Hg] [facility] 11-17-2024 14:32-0500 Body height 187.[address] [facility] 11-17-2024 14:32-0500 Body mass index (BMI) [Ratio] 19.9 kg/m2 [facility] 11-17-2024 14:32-0500 Body weight 70.[address] [facility] 11-17-2024 14:32-0500 Diastolic blood pressure 89 mm[Hg] [facility] 11-17-2024 14:32-0500 Heart rate 90 /min [facility] 11-17-2024 14:32-0500 Respiratory rate 12 /min [facility] 11-17-2024 14:32-0500 Systolic blood pressure 139 mm[Hg] [facility] 07-15-2024 16:03-0400 Body height 187.[address] [facility] 07-15-2024 16:03-0400 Body mass index (BMI) [Ratio] 20.2 kg/m2 [facility] 07-15-2024 16:03-0400 Body weight 71.[address] [facility] 07-15-2024 16:03-0400 Diastolic blood pressure 83 mm[Hg] [facility] 07-15-2024 16:03-0400 Heart rate 85 /min [facility] 07-15-2024 16:03-0400 Respiratory rate 12 /min [facility] 07-15-2024 16:03-0400 Systolic blood pressure 159 mm[Hg] [facility] 04-15-2024 14:57-0400 Body height 187.[address] [facility] 04-15-2024 14:57-0400 Body mass index (BMI) [Ratio] 19.8 kg/m2 [facility] 04-15-2024 14:57-0400 Body weight 69.[address] [facility] 04-15-2024 14:57-0400 Diastolic blood pressure 83 mm[Hg] [facility] 04-15-2024 14:57-0400 Heart rate 82 /min [facility] 04-15-2024 14:57-0400 Respiratory rate 12 /min [facility] 04-15-2024 14:57-0400 Systolic blood pressure 138 mm[Hg] [facility] Encounters Encounter Date Encounter Type Care Provider Facility Start: 01-26-2025 End: 01-26-2025 ambulatory [facility] Work Phone: Start: 01-26-2025 End: 01-26-2025 Patient encounter procedure [facility] Work Phone: Start: 01-14-2025 Non-patient / Non-visit [facility] Work Phone: Start: 01-06-2025 End: 01-06-2025 ambulatory [facility] Work Phone: Start: 01-06-2025 End: 01-06-2025 Patient encounter procedure [facility] Work Phone: Start: 11-17-2024 End: 11-17-2024 ambulatory [facility] Work Phone: Start: 11-17-2024 End: 11-17-2024 Patient encounter procedure [facility] Work Phone: Start: 10-30-2024 Non-patient / Non-visit [facility] Work Phone: Start: 07-15-2024 End: 07-15-2024 ambulatory [facility] Work Phone: Start: 07-15-2024 End: 07-15-2024 Patient encounter procedure [facility] Work Phone: Start: 04-18-2024 Non-patient / Non-visit [facility] Work Phone: Start: 04-15-2024 End: 04-15-2024 ambulatory [facility] Work Phone: Start: 04-15-2024 End: 04-15-2024 Encounter for general adult medical examination without abnormal findings [facility] Start: 04-15-2024 End: 04-15-2024 Patient encounter procedure [facility] Work Phone: Start: 04-21-2022 Encounter for genera l adult medical examination without abnormal findings DR KRAIG DOLL [facility] Start: 04-18-2022 End: 04-19-[address] KRAIG DOLL Facility:[facility] Start: 04-18-2022 End: 04-19-2022 Encounter for general adult medical examination without abnormal findings DR KRAIG DOLL Facility:[facility] Plan of Treatment Date Care Activity Detail Author Comprehensive metabo lic 1999 panel - Serum or Plasma [facility] enter Comprehensive metabo lic 1999 panel - Serum or Plasma [facility] enter IgA [Mass/volume] in Serum or Plasma [facility] Tissue transglutamin ase IgA Ab [Units/volume] in Serum [facility] enter US Gallbladder [facility] XR Chest 2 Views [facility] XR Elbow - left GE 3 Views [facility] Payers Date Payer Category Payer Unknown [id number] 1961 Unknown [id number] Social History Date Type Detail Facility Start: 04-15-2024 End: 12-31-2024 Tobacco smoking status NHIS Never smoked tobacco (finding) [facility] Start: 1995 Sex Assigned At Male [facility] Start: 11-17-2024 End: 01-26-2025 Sex Male (finding) [facility] Evaluation note 11-17-2024 Note Date & Type Note Facility 11-17-2024 Evaluation note Diagnosis Onset Date Resolution Abdominal pain acute November 2:21pm ADD (attention deficit disorder) acute November 17 2:21pm Benign nevus of skin acute 2024 2:21pm Chest wall pain, chronic acute November 17 2:21pm Abdominal pain acute December 132024 9:19am Excessive drinking of alcohol acute January 06, 025 9:19am Family hx of colon cancer acute January 06 025 9:19am Nausea & vomiting acute 2024 9:19am [facility] Work Phone: Evaluation note 11-17-2024 Note Date & Type [...] 2 025 9:19am Nausea & vomiting acute ua y 2024 9:19am Abdominal pain acute January 1:45pm Excessive drinking of alcohol acute January 26, 2025 1:45pm Family hx of colon cancer acute January 26, 2025 1:45pm Nausea & vomiting acute January 092024 1:45pm [facility] Work Phone: Evaluation note Note Date & Type Note Facility Evaluation note Diagnosis Onset Date Wellness examination noneact nathan [facility] Work Phone: Evaluation note Note Date & Type Note Facility Evaluation note Diagnosis Onset Date Abdominal pain acute Anterior chest wall pain acu te Arm paresthesia, left acute Hematochezia acute Left elbow pain acute [facility] Work Phone: Evaluation note Note Date & Type Note Facility Evaluation note Diagnosis Onset Date Resolution Abdominal pain acute November 2:21pm ADD (attention deficit disorder) acute November 17 2:21pm Benign nevus of skin acute Ruben 2024 2:21pm Chest wall pain, chronic acute November 17 2:21pm [facility] Work Phone: Summary Purpose Family History No Family History Records Found Advance Directives Advance Directive Response Recorded Date/ Time Advance Directives No April 15 2:49pm Advance Directive Response Recorded Date/ Time Advance Directives No April 15 1:49pm Advance Directive Response Recorded Date/ Time Advance Directives No December 12:07pm Advance Directive Response Recorded Date/ Time Advance Directives No December 1:07pm Chief Complaint and Reason for Visit Chief [...] Nausea & vomiting January 06, 2025 9:19am Chief Complaint Admit Date CC Adult Risk Stratification October 302023 11:49am 3 month follow up November 17, 2024 2: 21pm Abdominal Issues January 06, 2025 9:19am Discuss US Results January 26, 2025 1:4 5pm Reason for Visit Admit Date Abdominal pain [...] Nausea & vomiting January 06, 2025 9:19am Abdominal pain January 26, 2025 1:4 5pm Excessive drinking of alcohol January 1:45pm Family hx of colon cancer January 26 1:45pm Nausea & vomiting January 26, 2025 1:4 5pm Additional Source Comments (unrecognized sect ion and content) No Status Records Found INFORMATION SOURCE (unrecogn ized section and content) DATE CREATED AUTHOR 04/21/2022 [facility] Teams (unrecognized sec tion and content) [...] January 06, 2025 End: January 06, 2025 Team Status: Active Member Role Status Dates Kraig Doll , DO Primary Care Provide r, Attending Provider Active Start: January 14, 2025 Team Status: Inactive Member Role Status Rae Doll , DO Primary Care Provide r, Attending Provider Active Start: January 26, 2025 End: January 26, 2025 Goals (unrecognized section and content) Goals [...] BE BASED ON THE PRIMARY CLINICAL RECORDS. [employer] provides no warranty or guarantee of the accuracy or completeness of information in this document.
== END 2025-02-10 10:56 | disposition home or self-care (01) ==
LOC: CT 10:55
PROVIDERS: PCP Internal Medicine; Visit Provider Internal Medicine
DX: R11.14 Bilious vomiting (principal); Z80.0 Family history of malignant neoplasm of digestive organs; R10.11 Right upper quadrant pain
CPT/HCPCS: 74177; Q9967